=== PATIENT | male | born 1930 | race Caucasian/White ===

== ENCOUNTER 2016-09-20 05:39 | Inpatient (IN) | payer MEDICARE, OTHER ==
--- NOTE | 2016-09-18 08:51 | PCM.HPANE ---
Patient Data Surgeon Admitting Provider: Attending Provider:Parveen Johnson MD Primary Care Physician:Hudson Coates MD Other Provider:YangocPreciousPrinter Anesthesia Reason for Visit Incisional Hernia Ht/WT & BMI Height (Feet): 5 Height (Inches): 11 Weight (Kilograms): 93.2 Body Mass Index 28.00 Allergies Coded Allergies: codeine (Verified Allergy, Severe, Hallucinations, 06/30/16) polyethylene glycol 3350 (Verified Allergy, Unknown, vomiting, gerd, ) Past Anesthesia History Anesthesia History: Denies:: Abnormal Airway, Anesthesia Reactions, Difficult Intubation, Fam Anesthesia Reaction, Fam Malignant Hypertherm, Malignant Hyperthermia Diabetes History Hx Diabetes?: No MRSA MRSA: No Medications Hypertension Medication: Yes Home Meds Incl Beta Gabby: Yes Reported Medications Propranolol HCl 40 Mg Qrvnyo00 Mg PO DAILY PRN tachycardia Ref 0 09/16/16 Metoprolol Succinate ER 25 Mg Tab.er.24h25 Mg PO BID Ref 0 09/16/16 Lisinopril 10 Mg Tablet5 Mg PO DAILY 30 Days Ref 0 09/16/16 [Iron] No Conflict Check25 Mg PO BID 11/03/15 Eszopiclone (Lunesta)3 Mg Tablet3 Mg PO HS PRN sleep 10/08/14 Amitriptyline 25 Mg Tab25 Mg PO HS Ref 0 10/08/14 Prazosin 5 Mg Capsule5 Mg PO HS 30 Days 10/08/14 Furosemide 20 Mg Tab20 Mg PO DAILY 30 Days Ref 0 10/08/14 Discontinued Reported Medications Propranolol HCl 40 Mg [id number] Mg PO DAILY Ref 0 06/30/16 Metoprolol Succinate ER 25 Mg Tab.er.24h25 Mg PO DAILY Ref 0 06/30/16 Lisinopril 20 Mg Baerwm60 Mg PO DAILY 30 Days Ref 0 09/17/15 History History of ENT Problems?: Yes HEENT History: Positive for:: Hearing Problem Sinus Problem (chronic sinus drainage- uses Neti pot) Denies:: Abnormal Airway Cataracts Difficult Intubation Dysphagia Other HEENT Pertinent History: 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, 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 difficulty, does not see well Hx of Heart Problems?: Yes Cardiovascular History: Positive for:: Hypertension Irregular Heartbeat (SVT) Denies:: AICD Atrial Fibrillation Cardiac Surgery Chest Pain Congestive Heart Failure Edema Heart Murmur Pacemaker Thrombophlebitis Valvular Heart Disease Hx of Respiratory Problem?: Yes Respiratory History: Positive for:: Pneumonia Use of C-PAP Machine (NICK+) Denies:: Asthma COPD Chest Surgery Cough Dyspnea Emphysema Hemoptysis Tuberculosis Hx Neurologic Problems?: No Neurological History: Denies:: CVA Dementia Dizziness Headaches Multiple Sclerosis Parkinson's Disease Seizures TIA Hx of GI Problems?: Yes Gastrointestinal History: Positive for:: Cirrhosis Gall Bladder Disease (removed) Liver Disease (liver function normal on blood workstates has cirrhosis) Denies:: Diverticulitis Gastroesphageal Reflux Hiatal Hernia Rectal Bleeding Other GI Pertinent History: hx lap right colectomy 2016 Hx of Problems?: Yes Genitourinary History: Denies:: HX of Hemodialysis (CKD stage III) Kidney Stones Urinary Tract Infection HX of Peritoneal Dialysis: No Male Hx: Denies:: Prostate Problems Scrotal Mass Testicular Surgery Skin History: Denies:: History Skin Disorders? Pressure Ulcers Hx Musculoskeletal Problems?: Yes Musculoskeletal History: Positive for:: Back Injury (C6-7 lami hx ) Musculoskeletal Trauma Osteoarthritis Denies:: Fibromyalgia Joint Replacement Myasthenia Gravis Systemic Lupus Hx of Psycho/Social Problems?: No Psycho Social History: Denies:: Anxiety Bipolar Disorder Hx Depression Suicide Attempt Hx Surgeries?: Yes (neck c6-7,gallbladder,appy,colon resection,cataracts) Hx Any Other Health Problems?: Yes Other History: Positive for:: Cancer (CECAL) Denies:: Endocrine Disease Hospitalization Thyroid Disease History Blood Transfusions: Positive for:: Accept Blood Products? Denies:: Blood Transfuse Reaction Blood Transfusions Hx Diabetes: No Hx Alcohol Use: YesAlcoholic Drinks Per Day: beer once weeklyHx Substance Use : No Smoking Status: Never Smoker Have You Smoked inLast 12 mo: No Stop/Bang S-Snoring: Do You Snore Loudly: No T-Tired: feel tired, fatigued: Yes O-Obsered: Observed not breath: No P-Blood Pressure: treated: Yes B- Body Mass Index > 35 kg/m2: No A- Age over 50: Yes N- Neck Large Circumference: No G- Gender Male: Yes NICK Total Score: 4 Risk Assessment Category Category 1A: Patient has history of documented sleep apnea, and HAS NOT received any narcotic, sedative or anesthesia administration during this stay. Category 1B: Patient has history of documented sleep apnea, and HAS received any narcotic , sedative or anesthesia administration during this stay Category 2: Patient has SUSPECTED Obstructive Sleep Apnea, and HAS received any narcotic , sedative or anesthesia administration during this stay. Category 3: Patient has SUSPECTED Obstructive Sleep Apnea and HAS NOT received narcotic, sedative or anesthesia administration during this stay. Category 4: Outpatient in Procedural Areas with known sleep apnea or who screen positive for High Risk via the STOP/BANG questionnaire. Exam Exam General Appearance: Alert, Oriented X3, Cooperative, No Acute Distress HEENT/AIRWAY: MP 2, Neck Movement (30% expected ROM), Mouth Opening (small) Lungs: Normal Air Movement Plan Impression Patient chart reviewed, patient interviewed and anesthestic plan with risks, benefits, and alternatives discussed, and informed consent obtained. NPO Status: 11/02/15 1730 ASA Physical Status: ASA2 Mod Systemic Disease Anesthetic Plan: GA Bene/Risks/Altern/Consents: Yes HP Complete Prior to Induction: Yes Andriy Banerjee MD Sep 18, 2016 08:51
[~2016-09-20] VITALS: Ht 180.3 cm; Wt 94.4 kg
[2016-09-20] VITALS (9 sets, daily range): BP systolic 109–151; BP diastolic 62–82; PULSE 48–78; RESP 11–20; O2SAT 90–100
[~2016-09-20 05:39] MED LIST: AMT25T PO; ESZO3TAB11 PO; FUR20 PO; IRON PO; LISI10TA PO; Lactated Ringer's 1,000 ML IV ONE; METO25TA99 PO; PRAZ5CAP3 PO; PROP40TA5 PO
[2016-09-20] MEDS ORDERED: Glycopyrrolate 0.2 mg/mL 5 mL Inj ONE (05:40)
[2016-09-20] MEDS ORDERED: Neostigmine 1 mg/mL 5 mL Inj ONE (05:40)
[2016-09-20] MEDS ORDERED: Propofol 10,000 mCg/mL 20 mL Inj ONE (05:40)
[2016-09-20] MEDS ORDERED: Ondansetron 2 mg/mL 2 mL Inj ONE (05:40)
[2016-09-20] MEDS ORDERED: Rocuronium 10 mg/mL 5 mL Inj ONE (05:40)
[2016-09-20] MEDS ORDERED: fentaNYL-PF 50 mCg/mL 2 mL Inj ONE (05:40)
[2016-09-20] MEDS ORDERED: Heparin 5,000 Unit/mL Inj SUBQ ONE (06:00)
[2016-09-20] MEDS: CeFAZolin 2 Gm/50 mL D5W IV Premix IV ONE ×2 (07:09→07:43)
[2016-09-20] MEDS ORDERED: Lactated Ringer's 1,000 ML IV SCH (08:08)
[2016-09-20] MEDS ORDERED: Lactated Ringer's 500 ML IV PRN (08:08)
[2016-09-20] MEDS ORDERED: Labetalol 5 mg/mL 4 mL Inj IV PRN (08:10)
[2016-09-20] MEDS ORDERED: EPHEDrine Sulfate 50 mg/mL Inj IM PRN (08:10)
[2016-09-20] MEDS ORDERED: Dexamethasone 4 mg/mL Inj IVPUSH PRN (08:10)
[2016-09-20] MEDS ORDERED: hydrALAZINE 20 mg/mL Inj IVPUSH PRN (08:10)
[2016-09-20] MEDS ORDERED: EPHEDrine Sulfate 50 mg/mL Inj IVPUSH PRN (08:10)
[2016-09-20] MEDS ORDERED: Atropine 0.4 mg/mL Inj IVPUSH PRN (08:10)
[2016-09-20] MEDS ORDERED: Phenylephrine 10,000 mCg/mL Inj IVPUSH PRN (08:10)
[2016-09-20] MEDS ORDERED: Ondansetron 2 mg/mL 2 mL Inj IVPUSH PRN (08:10)
[2016-09-20] MEDS ORDERED: hydrOXYzine Inj 25 MG/1 mL SDV IM PRN (08:10)
[2016-09-20] MEDS ORDERED: Bupivacaine-MPF 0.5% 30 mL Inj INFILTRATE ONE (08:19)
[2016-09-20] MEDS: Dextrose 5% Lactated Ringer's 1,000 ML IV SCH ×2 (09:49→19:36)
[2016-09-20] MEDS: Acetaminophen IV 1,000 MG in IV Premix 1 EACH IV SCH ×3 (09:50→22:16)
[2016-09-20 10:14] LABS: APPEARANCE,URINE HAZY (CLEAR,HAZY); COLOR,URINE STRAW (YELLOW); OCCULT BLOOD,URINE NEGATIVE (NEGATIVE); PH,URINE 6.5 (5.0-8.0); UROBILINOGEN,URINE NORMAL (NORMAL)
[2016-09-20] MEDS: fentaNYL-PF 50 mCg/mL 2 mL Inj IVPUSH PRN ×3 (10:30→10:45)
--- NOTE | 2016-09-20 10:43 | PCM.ANEP1 ---
Post Anesthesia Phase 1 PACU Phase 1 Assessment Vital Signs Vital Signs Date Time Temp Pulse Resp B/P Pulse Ox O2 Delivery O2 Flow Rate FiO2 09/20/16 10:15 48 11 116/62 96 Nasal Cannula 2 09/20/16 10:05 49 12 126/64 97 Nasal Cannula 2 09/20/16 09:54 36.8 58 14 123/69 90 Room Air 09/20/16 05:59 CPAP/BIPAP 09/20/16 05:57 35.7 69 17 109/64 94 Room Air Anesthetic Administered: GA Level of Alertness: Awake, talking HUTTON's with Equal Strength: Yes Pain: No Nausea or Vomiting: No Oxygen Delivery: Room Air Lungs: Normal Air Movement Andriy Banerjee MD Sep 20, 2016 10:43
[2016-09-20] MEDS: HYDROmorphone 1 mg/mL Inj IVPUSH PRN ×2 (10:55→11:00)
--- NOTE | 2016-09-20 15:13 | NUR ---
Arrival to 1001 Pt to room 1001 at 1140 from PACU, report taken from Eriberto. Pt is alert and oriented; rating pain 5/10 in his abdominal region, stating it "comes in waves"; denies nausea; abdomen has 10 lap sites with bandaids and s/s that are CDI, is round with hypoactive bowel tones; gao catheter is patent and draining to gravity; PIV converted to SL per orders; SCD's on BLE; on 2L O2 via NC and placed on CPOx d/t NICK and CPAP use. Pt is familiar with abdominal surgery as he recently had a colectomy at this facility. is at bedside.
[2016-09-20] MEDS ORDERED: 0.9% Sodium Chloride 250 ML ONE (15:32)
--- NOTE | 2016-09-20 20:03 | OP ---
[address] [address] OPERATIVE REPORT PATIENT: CARMEN COPELAND : 1930 MR#: [id number] ADMIT: 09/20/2016 JOB ID: [id number] DATE OF SURGERY: 09/20/2016 PREOPERATIVE DIAGNOSIS(ES): Incarcerated incisional hernia. POSTOPERATIVE DIAGNOSIS(ES): Incarcerated incisional hernia. PROCEDURE: Laparoscopic repair, incarcerated incisional hernia with mesh. SURGEON: Parveen Johnson MD. FREELANCE PROGRAMMER/APP DEVELOPER: Wyatt Elizondo PA-C. INDICATIONS: An 85-year-old man who had a laparoscopic right colectomy for right colon cancer in August 2015. He developed a postoperative ileus resulting in a marked abdominal wall distention and developed an incisional hernia at the specimen extraction incision which is in a periumbilical location. He has an SVT and was seen preoperatively by Dr. Cornelio Callejas and received cardiology clearance. FINDINGS: He had an incarcerated hernia. It contained actually only a small amount of incarcerated omentum. There was no incarcerated intestine. The defect was 10 cm. It was repaired with a 20 x 15 cm Opti-Fix mesh. DESCRIPTION OF PROCEDURE: At the beginning and end of the operation, the SCOAP checklist was completed. A Tyson catheter was inserted. He received preoperative antibiotics and subcutaneous heparin. Using ChloraPrep, he was prepped and draped in the usual fashion. All trocar sites were infiltrated with 0.5% plain bupivacaine. A small left subcostal incision was made. A Veress needle was inserted atraumatically, the abdomen insufflated with CO2 and an optical port was placed through the same incision. All additional trocars were placed under direct visualization. On the left side, two additional 5 mm trocars were placed. The incarcerated omentum was mobilized out of the hernia sac. Then under direct visualization, three additional right-sided ports were placed with the mid abdominal port being a 12 mm port. The hernia defect was measured and then a 20 x 15 cm Opti-Fix mesh was selected. 0-Vicryl sutures were then placed at the 12 o'clock, 3 o'clock, 6 o'clock and 9 o'clock positions. They were color-coded so that there was orientation between the lateral and the superior and inferior sutures. The mesh was then rolled up tightly and through the large right lateral port it was positioned into the abdominal cavity. It was unfurled and the approximate locations of the mesh were then marked, but then it was adjusted by positioning it intra-abdominally. I then made very small incisions at the 12 o'clock position and grasped the 2-0 Vicryl sutures and brought full-thickness through the abdominal wall. I did a similar move at the 6 o'clock position ensuring than that the mesh was taut without any laxity. Following that, I measured markings for the 3 o'clock and 9 o'clock sutures and they similarly were brought through the abdominal wall. During this part of the procedure, the intra-abdominal pressure was markedly reduced down to the 7-8 range. When I placed the 3 o'clock suture, bleeding ensued from the abdominal wall and it was controlled with an additional mattress suture of 3-0 Vicryl placed with a suture grasper. Bleeding then stopped. The four sutures were then securely tied and then the mesh was tacked circumferentially with absorbable tacks. Additional tacks were placed in the mid portion of the mesh, also circumferentially. I reinspected the left lateral abdominal wall. There was no active bleeding. The 12 mm port was then removed and at that site the trocar site was closed with mattress sutures of 0-Vicryl. For one last time I inspected the left lateral abdominal wall where it had been bleeding and there was no active bleeding. All of the remaining 5 mm trocars were removed without evidence of bleeding. Skin incisions were closed with subcuticular 4-0 Vicryl. Steri-Strips and Band-Aids were applied. The final sponge, needle and instrument counts were announced as correct. Estimated blood loss 20 cc. No apparent complications. The patient was returned to recovery room in stable condition. Critical laparoscopic assistance provided by ROSMERY Lentz
[2016-09-20] MEDS: MeTOProlol XL 25 mg ER24 Tablet PO SCH (20:48)
[2016-09-20] MEDS ORDERED: HYDROmorphone 0.5 mg/0.5 mL iSecure Syringe IVPUSH PRN (21:25)
[2016-09-21] VITALS (8 sets, daily range): BP systolic 79–120; BP diastolic 51–75; PULSE 69–106; RESP 16–18; O2SAT 93–98
[2016-09-21] MEDS: Ondansetron 2 mg/mL 2 mL Inj IVPUSH PRN ×2 (02:34→22:28)
[2016-09-21] MEDS: Dextrose 5% Lactated Ringer's 1,000 ML IV SCH ×3 (04:16→19:40)
[2016-09-21] MEDS: Acetaminophen IV 1,000 MG in IV Premix 1 EACH IV SCH ×3 (04:16→19:04)
[2016-09-21 04:55] LABS: BASOPHILS % (AUTO) 0.1 % (0-3); EOSINOPHILS % (AUTO) 0.5 % (0-5); MONOCYTES % (AUTO) 11.6 % (4-12); Mean Corpuscular Hemoglobin 32.3 pg (27.0-35.0); Mean Corpuscular Volume 99.2 fL (81-100); NEUTROPHILS % (AUTO) 77.5 % (40-74); Platelet Count 261 bil/L (150-400)
[2016-09-21 05:16] LABS: Magnesium 2.2 mg/dL (1.6-2.6)
--- NOTE | 2016-09-21 06:00 | NUR ---
Bowel activity Pt has hyperactive bowel tones and complains of gassy pains; Simethicone given x 2. Dangled at side of bed, pain prevented pt from being able to get up. Pain managed with scheduled IV Tylenol and prn oxycodone with adequate relief while resting in bed. Hourly rounding ongoing.
--- NOTE | 2016-09-21 06:54 | PCM.ANEP2 ---
Post Anesthesia Evaluation ASA/CMS Post Anesthesia VS in Patient's Normal Range?: Yes Resp Stable; Airway Patent?: Yes CV Function & Hydration Stable: Yes Mental Status Recovered?: Yes Pain control Satisfactory?: Yes N/V Control Satisfactory?: Yes Andriy Banerjee MD Sep 21, 2016 06:53
[2016-09-21] MEDS: MeTOProlol XL 25 mg ER24 Tablet PO SCH ×2 (08:30→22:28)
[2016-09-21] MEDS ORDERED: HYDROmorphone PCA 0.2 mg/mL 30 mL Inj IV PRN (08:40)
[2016-09-21] MEDS ORDERED: Magnesium Hydroxide 10 mL Oral Concentration PO PRN (08:40)
[2016-09-21] MEDS: MetoCLOpramide 5 mg/mL 2 mL Inj IVPUSH PRN (08:43)
--- NOTE | 2016-09-21 09:32 | PROG NOTE ---
[address] [address] PROGRESS NOTE PATIENT: CARMEN COPELAND : 1930 MR#: [id number] ADMIT: 09/20/2016 JOB ID: [id number] DATE: 09/21/2016 SUBJECTIVE: Postoperative day one following laparoscopic repair of an incarcerated incisional hernia. He is still having pain as expected although his current pain management is not effective. He has also developed nausea. He has not had flatus or bowel movements, but feels his intestines churning and thinks he is going to pass gas. He has been up out of bed. He is currently sitting in a chair. PHYSICAL EXAMINATION: BMI 28. Temperature 36.7, brachial blood pressure is 80/53. Pulse 106, respiratory rate 16, O2 sat on 2 L is 93%. Abdomen is moderately distended. No significant ecchymosis. LABORATORY RESULTS: White blood cell count 10.3, hematocrit 37.5, platelet count 261,000. Electrolytes are normal. Creatinine is 1.22. Glucose is 116. Magnesium is 2.2. IMPRESSION: 1. Hypotension. For unknown reasons, his IV was stopped in the middle of the night. There is no order to support that. 2. Nausea. He had an ileus a year ago with his right laparoscopic colectomy which did lead to the formation of a hernia and perhaps he is starting to develop that. 3. Pain control. Currently inadequate. PLAN: 1. Continue IVs. 2. Continue activity. 3. Milk of Magnesia p.r.n. 4. Recheck labs tomorrow. 5. Dilaudid BENCH LATHE OPERATOR. 6. Ondansetron and metoclopramide already ordered.
[2016-09-21] MEDS: Pantoprazole 4 mg/mL 10 mL Inj IVPUSH SCH ×2 (11:18→22:28)
--- NOTE | 2016-09-21 11:28 | NUR ---
Social Work Initial Assessment: SW spoke to patient at bedside to discuss discharge plan. Patient verified name, address, and contact information. Patient is a 85 year old male admitted under [facility] for incisional hernia. Patient states residing in [facility] [place] with Janna, . Patient states payer as Medicare and [employer]. Patient has no care home disability nor VA benefits. Patient has no previous HHC, SNF, or DME history. Patient states having AD on file at this time. Patient states pharmacy of choice as [facility] or [facility]. Patient states home is wheelchair assessable with wide doors. Patient states being independent with needs and to provide support and care. Patient states having no identified discharge needs at this time. SW to follow. PLAN: Home with via POV, pending clinical course. SW will continue to follow. No anticipated discharge needs at this time. Davon MULLIGAN Addendum: 09/21/16 at 1132 by GAYLE CORDOVA Amended: Links added.
--- NOTE | 2016-09-21 13:41 | NUR ---
Distended abd, low bp Patient with pressure , abd cramping at times, abdomen is distended and slightly firm to touch. Pt with some nausea in am. Pt up to chair became dizzy Bp noted to be very low 80's/40-50's, pt assisted back to bed and feet elevated manual Bp taken now 96/62 when checked. Patients bp Meds withheld this am related to low bp. is in surgery and will be notified of this.
[2016-09-21] MEDS ORDERED: diphenhydrAMINE 25 mg Capsule PO PRN (19:00)
[2016-09-22] MEDS: Acetaminophen IV 1,000 MG in IV Premix 1 EACH IV SCH ×2 (01:05→06:27)
[2016-09-22] MEDS: MetoCLOpramide 5 mg/mL 2 mL Inj IVPUSH PRN ×2 (03:25→10:24)
[2016-09-22 05:29] LABS: BASOPHILS % (AUTO) 0.1 % (0-3); EOSINOPHILS % (AUTO) 0.4 % (0-5); MONOCYTES % (AUTO) 13.1 % (4-12); Mean Corpuscular Hemoglobin 32.5 pg (27.0-35.0); Mean Corpuscular Volume 100.2 fL (81-100); NEUTROPHILS % (AUTO) 81.5 % (40-74); Platelet Count 305 bil/L (150-400)
[2016-09-22 06:00] LABS: Magnesium 2.2 mg/dL (1.6-2.6)
[2016-09-22 06:28] VITALS: BP 109/72; PULSE 92; RESP 17; O2SAT 98
[2016-09-22] MEDS: Dextrose 5% Lactated Ringer's 1,000 ML IV SCH ×2 (06:29→17:59)
--- NOTE | 2016-09-22 06:39 | NUR ---
GI Abdomen continues to be very firm and distended; hyperactive, high pitched, metallic-sounding bowel tones. Pt nauseated and vomited large amount of green liquid during night. Denies flatus. Pain is relatively unchanged, IV Tylenol providing adequate relief. Hourly rounding ongoing.
[2016-09-22 08:15] VITALS: BP 153/89; PULSE 87; RESP 18; O2SAT 99
[2016-09-22] MEDS: Pantoprazole 4 mg/mL 10 mL Inj IVPUSH SCH ×2 (08:33→19:59)
[2016-09-22] MEDS: MeTOProlol XL 25 mg ER24 Tablet PO SCH ×2 (08:41→19:56)
--- NOTE | 2016-09-22 10:31 | DRSVH ---
PROCEDURE: X-RAY ABDOMEN, ONE VIEW ([id number]) INDICATIONS: abdominal distension after incisional hernia repa TECHNIQUE: One view of the abdomen acquired. COMPARISON: [facility], CR, XR ABD AP 1VW, 11/10/2015, 21:26. FINDINGS: Surgical changes and devices: Right upper quadrant presumed cholecystectomy clips. Bowel: Bowel gas pattern is abnormal, with gas distention of small bowel loops to the degree that sm all bowel obstruction appears present. Soft tissues: No suspicious abdominal calcifications. Visualized solid organ contours appear normal in size. Bones: No suspicious bony lesions. IMPRESSION: Prior cholecystectomy, small bowel obstruction pattern, no free air found. Dictated by: Andrey Swain M.D. on 09/22/2016 at 10:29 Approved by: Andrey Swain M.D. on 09/22/2016 at 10:30
--- NOTE | 2016-09-22 11:00 | PROG NOTE ---
[address] [address] PROGRESS NOTE PATIENT: CARMEN COPELAND : 1930 MR#: [id number] ADMIT: 09/20/2016 JOB ID: [id number] DATE: 09/22/2016 SUBJECTIVE: The patient is seen in followup. He vomited during the night. He has not passed gas or had a bowel movement but he feels that he is going to. PHYSICAL EXAMINATION: Temperature is 36.5, brachial blood pressure 153/89, pulse 87, respiratory rate 18, O2 sat on 2 L 99%. Abdomen very distended. Band-Aids have caused blistering, and all Band-Aids and Steri-Strips will be removed. Urine output 650 cc in the first 8 hours of today. LABORATORY RESULTS: White blood cell count is 13.6, hematocrit is 40, platelet count 305,000. Electrolytes are normal. Creatinine has risen minimally to 1.26 from 1.22. Glucose 164. IMPRESSION: Ileus. PLAN: Abdominal x-rays. May need an NG tube. Repeat labs tomorrow. Encourage ambulation. Consider enema.
[2016-09-22] MEDS ORDERED: Sodium Biphos-Phos 133 mL Enema RECTAL ONE (12:45)
--- NOTE | 2016-09-22 14:31 | NUR ---
Case Management- Patient given TOLBERT. Explained and signed. Nicole CUELLAR/RN
--- NOTE | 2016-09-22 16:06 | NUR ---
Abdominal distention Pt reports distention of his abdomen today. Had one episode of emesis this a.m. of approximately 25 mL. Emesis was green bile. Bandaids that were covering the lap sites had stretched and caused a few skin tears and one small blister on his medial abdomen. Bowel tones were present in all 4 quadrants, but pt reported no flatus. ordered a Fleet enema. Enema administered and pt had a loose brown BM just before 1600 hrs. Pt feeling tired now and he is resting in bed. Care continues.
[2016-09-22 17:43] VITALS: PULSE 108; O2SAT 97
[2016-09-22 18:57] VITALS: BP 148/89; PULSE 115; RESP 17; O2SAT 97
[2016-09-22 20:01] VITALS: BP 133/82; PULSE 118; RESP 17; O2SAT 95
[2016-09-23] MEDS: Dextrose 5% Lactated Ringer's 1,000 ML IV SCH ×2 (04:21→16:54)
[2016-09-23 04:34] VITALS: BP 101/66; PULSE 116; RESP 17; O2SAT 95
--- NOTE | 2016-09-23 05:07 | NUR ---
Smear BM Pt. had a smear BM this shift. Pt. still was distended. Pt. requested milk of mag which was administered. Will continue to monitor.
[2016-09-23 05:29] LABS: BASOPHILS % (AUTO) 0.1 % (0-3); EOSINOPHILS % (AUTO) 1.4 % (0-5); MONOCYTES % (AUTO) 16.1 % (4-12); Mean Corpuscular Hemoglobin 32.5 pg (27.0-35.0); Mean Corpuscular Volume 99.5 fL (81-100); NEUTROPHILS % (AUTO) 75.9 % (40-74); Platelet Count 295 bil/L (150-400)
[2016-09-23 06:01] LABS: Magnesium 1.8 mg/dL (1.6-2.6)
[2016-09-23] MEDS ORDERED: Sodium Biphos-Phos 133 mL Enema RECTAL ONE (07:50)
[2016-09-23] MEDS: MeTOProlol XL 25 mg ER24 Tablet PO SCH ×2 (08:30→22:45)
[2016-09-23 08:32] VITALS: BP 129/81; PULSE 116; RESP 20; O2SAT 96
--- NOTE | 2016-09-23 08:36 | PROG NOTE ---
[address] [address] PROGRESS NOTE PATIENT: CARMEN COPELAND : 1930 MR#: [id number] ADMIT: 09/20/2016 JOB ID: [id number] DATE: 09/23/2016 SUBJECTIVE: Postoperative day three following laparoscopic incisional hernia repair. He had a large bowel movement yesterday, but he has not had anything out since then. He had a rough night. He did try some Milk of Magnesia, which cause cramping and pain. He is just not feeling well. PHYSICAL EXAMINATION: Temperature 36.4, brachial blood pressure 101/66, pulse 116, respiratory rate 17, O2 sat 2 L 95%. Abdomen remains distended. Maybe a little less than two days ago, but not significantly. Urine output 150 cc the first eight hours of today. AXR yesterday air in SB no free air LABORATORY RESULTS: White count has dropped slightly from 13,600 to 11,000. Hematocrit is 36. Platelet count 295,000. Electrolytes are normal. Creatinine has risen from 1.26 to 1.8. Glucose is 168. Bilirubin 0.4. AST 17, ALT 11. IMPRESSION: Ileus. PLAN: Repeat enema today. Try to ambulate. Repeat labs in the morning. Will check on him later today. Will also increase his IV rate. MTDD
--- NOTE | 2016-09-23 10:18 | NUR ---
NUTRITION ASSESSMENT: ASSESS: Pt is an 85yo M admitted for incisional hernia. Postoperative day three following laparoscopic incisional hernia repair. He has been experiencing increased abdomen distention and some n/v. Pt had large BM 09/22 but continues to have abdomen cramping. PO has been variable due to GI symptoms from refused-75%. PMHX: HTN, COPD, PNA, gallbladder disease, cecal ca LABS: Reviewed. Claim Specialist 1.81, Glu 168, Alb 3.2 MEDS:Reviewed. Milk of Mag, fleet enema, tums GI: BMx1 09/23 SKIN: Alejandro 20 CURRENT WTS: 93.4kg, BMI 28.7kg/m2, admit wt 91.5kg DIET: Heart Healthy, PO refused-75% EST. NEEDS: Kcals: 2335-2800kcal/day (25-30kcal/kg) Pro: 90-110g/day (1.0-1.2g/kg) NUTRITION DIAGNOSIS: 1.) Inadequate oral intake related to altered GI function as evidence by pt refusing PO, reported abdomen distended/cramping and n/v NUTRITION INTERVENTION: 1.) Will continue to monitor GI status and PO intake MONITOR / EVAL: PO intake, GI, wt, POC, nutrition status. Will continue to monitor per moderate nutrition risk guidelines
--- NOTE | 2016-09-23 11:30 | NUR ---
Abdominal Distention/Enema Pt c/o abdominal distention, firmness, and unable to pass gas. Fleets enema given to patient. Post administration one hour, patient has 1 xsmall episode of watery stool with minimal relief in abdomen. RLQ distention prominent. Paged with nursing concerns and family wishes to speak with him. New order for NGT. Informed patient of plan of care and patient wishes to decline NGT at this time and wait to see if enema has further effect. Cancelled NGT order. Reported all physical symptoms to .
[2016-09-23] MEDS ORDERED: Lactated Ringer's 500 ML IV ONE (12:45)
[2016-09-23] MEDS ORDERED: Lactated Ringer's 1,000 ML IV ONE (13:09)
--- NOTE | 2016-09-23 13:20 | NUR ---
Pt up to BSC 1 person assist; Pt had 1 small watery stool. Addendum: 09/23/16 at 1320 by KRISTINA CATHERINE Amended: Links added.
[2016-09-23 14:42] VITALS: BP 137/78; PULSE 80; RESP 17; O2SAT 97
--- NOTE | 2016-09-23 16:08 | NUR ---
NG placement: Ng placed to right nares. 14F to 55cm length. Lt green drainage returned. Some bleeding to left nares after 1st insertions attempt failed.
--- NOTE | 2016-09-23 16:12 | NUR ---
NGT to LIS, Immediately drained 500ml Dark green bile contents with brown particulate. Patient indicates he feels immediate pressure relief in abdomen.
[2016-09-23 17:15] VITALS: BP 147/83; PULSE 91; RESP 17; O2SAT 93
[2016-09-23 19:30] VITALS: BP 133/75; PULSE 106; RESP 16; O2SAT 95
[2016-09-23] MEDS: Pantoprazole 40 mg ER24 Tablet PO SCH (22:45)
[2016-09-24 00:19] VITALS: BP 129/80; PULSE 118; RESP 16; O2SAT 92
[2016-09-24] MEDS ORDERED: Lactated Ringer's 500 ML IV ONE ×2 (00:45→08:35)
[2016-09-24] MEDS ORDERED: Lactated Ringer's 0 ML IV ONE (01:08)
[2016-09-24] MEDS: Dextrose 5% Lactated Ringer's 1,000 ML IV SCH ×4 (01:12→20:22)
[2016-09-24 04:29] VITALS: BP 122/84; PULSE 123; RESP 17; O2SAT 90
[2016-09-24] MEDS: Ondansetron 2 mg/mL 2 mL Inj IVPUSH PRN (04:29)
--- NOTE | 2016-09-24 04:56 | NUR ---
NG / output NG continues to freely drain dark green/brown liquid with particulates, pt reports less tight abdominal discomfort, intermittent nausea. Low urine output, Md aware; fluid bolus given and orders followed. Pt has not been out of bed this shift. HR tachy, asymptomatic. Hourly rounding ongoing.
[2016-09-24 05:35] LABS: BASOPHILS % (AUTO) 0.3 % (0-3); MONOCYTES % (AUTO) 23.5 % (4-12); NEUTROPHILS % (AUTO) 62.1 % (40-74); Platelet Count 321 bil/L (150-400)
[2016-09-24] MEDS: MeTOProlol XL 25 mg ER24 Tablet PO SCH ×2 (07:39→20:28)
[2016-09-24] MEDS: Pantoprazole 40 mg ER24 Tablet PO SCH ×2 (07:39→20:24)
[2016-09-24] MEDS ORDERED: Lactated Ringer's 1,000 ML IV ONE (08:05)
--- NOTE | 2016-09-24 09:13 | PROG NOTE ---
[address] [address] PROGRESS NOTE PATIENT: CARMEN COPELAND : 1930 MR#: [id number] ADMIT: 09/20/2016 JOB ID: [id number] DATE: 09/24/2016 SUBJECTIVE: Postoperative day four following laparoscopic placement of mesh for repair of an incisional hernia. He had a large bowel movement on postoperative day two. He had a small bowel movement this morning but yesterday, because of progressive abdominal distention and nausea and vomiting, an NG tube was placed. It did help him feel better but he still feels miserable. PHYSICAL EXAMINATION: His weight is 93.1, which is up 2 kg since admission. Temperature 36.8, brachial blood pressure 122/84, pulse 123, respiratory rate 17, O2 sat is 90 on room air. It is listed on room air but I actually think he is on nasal prongs. NG tube with bilious output. He put out a total of 1800 cc overnight. Urine output 600 cc overnight. Abdomen is less distended. Incisions are healing well. LABORATORY DATA: White blood cell count 7.8, hematocrit 35.9, platelet count 321,000. Sodium 143, potassium 3.5, creatinine 1.6 from 1.8 yesterday, magnesium is 2.0. IMPRESSION: Ileus versus small bowel obstruction. PLAN: A CT scan of the abdomen without contrast.
[2016-09-24 09:51] VITALS: BP 148/90; PULSE 106; RESP 15; O2SAT 97
--- NOTE | 2016-09-24 12:03 | DRSVH ---
PROCEDURE: CT ABDOMEN AND PELVIS WITHOUT CONTRAST ([id number]) INDICATIONS: post-op ileus TECHNIQUE: Noncontrast 5 mm thick sections acquired from the diaphragms to the symphysis. 5 mm coronal and sagi ttal reformats were then performed. For radiation dose reduction, the following was used: automated exposure control, adjustment of mA and/or kV according to patient size. COMPARISON: [facility], CT, CT ABD PELVIS WO CON, 01/18/2016, 15:54. FINDINGS: Image quality: Excellent. ABDOMEN: Lung bases: Moderate dependent bibasilar airspace opacity is present. Heart size is normal. Solid organs: Liver and spleen are normal in size. Gallbladder is surgically absent. Pancreas is n ormal in contours. No adrenal nodules. Kidneys are normal in size, without hydronephrosis or nephro lithiasis. Peritoneum and bowel: The stoma is nondistended, and the distal aspect of CT is present within the pr oximal gastric lumen. The duodenum is nondistended. There is moderate to severe distention of the rem ainder of the small bowel, extending to a right lower quadrant ileocecal anastomosis. The colon is mo derately diffusely distended. There is relative sparing of the descending and sigmoid colon. No free fluid or air. Nodes and vessels: No retroperitoneal or mesenteric adenopathy by size criteria. Aorta and inferior vena cava are normal in caliber. Miscellaneous: The previously seen bowel containing anterior paramedian abdominal wall hernia is no l onger present, and there is an 11.7 mm diameter subcutaneous fluid collection in this location. PELVIS: Genitourinary: A Tyson catheter is present within the urinary bladder lumen. Miscellaneous: No inguinal hernias or adenopathy. Bones: No suspicious bony lesions. No vertebral body compression fractures. IMPRESSION: 1. Diffuse small and large bowel distention as described above, consistent with the given history of ileus. No discrete transition point is present to indicate small bowel obstruction. 2. Postsurgical fluid collection within the herniorrhaphy bed. 3. Bibasilar atelectasis versus pneumonia. Dictated by: Jori Castillo M.D. on 09/24/2016 at 11:56 Approved by: Jori Castillo M.D. on 09/24/2016 at 12:01
[2016-09-24 14:21] VITALS: BP 152/83; PULSE 99; RESP 16; O2SAT 90
--- NOTE | 2016-09-24 16:31 | NUR ---
Social Work Continued Discharge Planning: SW met with patient at bedside to discuss discharge plan. Patient states plan as home pending NG tube management. Patient states he hopes to discharge home with support from and family. SW to follow up with patient's clinical course to ensure home nutrition needs upon discharge. SW to follow. PLAN: Home with pending clinical course Davon Ng
--- NOTE | 2016-09-24 17:40 | NUR ---
Urine output Pt had low Urine output when this RN arrived today, Pt has gotten 3350 ML in fluid IV today and has had 290 ml out of gao today in 10 hours, MD aware. Pt does not have blockage but does have ileus and pt does not have hernia but fluid making his abdomen bulge.
[2016-09-24 19:55] VITALS: BP 155/93; PULSE 121; RESP 16; O2SAT 97
--- NOTE | 2016-09-24 20:32 | NUR ---
Inpatient status effective today. [facility] signed
[2016-09-25] MEDS: Dextrose 5% Lactated Ringer's 1,000 ML IV SCH (02:26)
--- NOTE | 2016-09-25 03:37 | NUR ---
Pain/ Liquid Stool Pt. reported moderate pain. 2 Oxycodone tablets have been effective for his pain so far. Pt. had a moderate amount of liquid stool. Will continue to monitor.
[2016-09-25 05:43] VITALS: BP 147/80; PULSE 123; RESP 16; O2SAT 92
[2016-09-25 06:08] LABS: BASOPHILS % (AUTO) 0.4 % (0-3); EOSINOPHILS % (AUTO) 2.4 % (0-5); MONOCYTES % (AUTO) 26.1 % (4-12); Mean Corpuscular Hemoglobin 32.6 pg (27.0-35.0); Mean Corpuscular Volume 101.4 fL (81-100); NEUTROPHILS % (AUTO) 58.4 % (40-74); Platelet Count 312 bil/L (150-400)
--- NOTE | 2016-09-25 07:59 | PCM.PNSURG ---
Subjective Visit Information: Reason for Visit Incisional Hernia Surgery/Surgery Date HERNIA REPAIR 09/20/16 Post-Op Day # Date of Admission: Sep 20, 2016 at 11:27 Hospital Day # Subjective: had a small liquid BM last night, denies flatus, still distended but thinks it' s softer Objective Objective Awake in bed Abd: distended, protruding lower abd wall due to seroma, incisions OK Vital Sign- Last 8 Hours Date Time Temp Pulse Resp B/P Pulse Ox O2 Delivery O2 Flow Rate FiO2 09/25/16 05:43 36.8 123 16 147/80 92 Nasal Cannula 2.00 09/25/16 00:30 Supplement Oxygen CPAP/BIPAP Intake and Output- Last 8 Hour 09/25/16 Cumulative From/Thru 07:00 09/16/16 13:44 - 09/25/16 05:41 Intake Total 0 ml 32104 ml Output Total 1050 ml 9855 ml Balance -1050 ml 2865 ml Intake Oral 0 ml 3490 ml IV Total 9230 ml Output Urine Total 200 ml 5360 ml Stool Total 200 ml 200 ml Gastric Drainage Total 650 ml 3950 ml Emesis 325 ml Estimated Blood Loss 20 ml # Bowel Movements 6 Result Diagram: 09/25/16 0513 09/25/16 0513 Assessment & Plan Impression Postop ileus s/p incisional hernia repair with mesh Problems: Plan Continue NGT and IVF ambulate Consider removing gao tomorrow if UOP is better VTE Prophylaxis: Sub-Q Heparin (Unfractionated) Francisco Virk MD Sep 25, 2016 07:59
[2016-09-25] MEDS: D5 0.45% NaCl + KCl 20 mEq/L 1,000 ML IV SCH ×3 (09:04→21:20)
[2016-09-25] MEDS: Pantoprazole 40 mg ER24 Tablet PO SCH ×2 (09:04→20:59)
[2016-09-25] MEDS: MeTOProlol XL 25 mg ER24 Tablet PO SCH ×2 (09:05→21:00)
[2016-09-25] MEDS: Heparin 5,000 Unit/mL Inj SUBQ SCH ×2 (09:24→16:46)
[2016-09-25 13:07] VITALS: BP 152/95; PULSE 121; RESP 18; O2SAT 93
--- NOTE | 2016-09-25 13:58 | NUR ---
GI NGT intermittent suction turned off for short time, approx 45 mins for oral medications to be administered. Just before turning suction back on, patient stated he was starting to feel nauseous. C/o abd pain 2-11/05, declined any pain medication. Small BM x1 during shift. No flatus. Continue to monitor.
[2016-09-25] MEDS: MetoCLOpramide 5 mg/mL 2 mL Inj IVPUSH PRN (14:59)
--- NOTE | 2016-09-25 17:34 | NUR ---
MOOD Patient verbalized frustration over recent medical issues. States has no energy, "can't even get up out of bed." Feeling hopeless. Provided active listening to patient's feelings and reassurance that he can overcome this. Encouraged patient to take everything one day at a time and that ileus' take time to recover from and we can't hurry up the situation. Encouraged patient to sit at edge of bed. Got to edge of bed with minimal assistance and had patient stand at EOB with FWW for a few minutes to provide reassurance that he still is capable of doing these things. Patient acknowledged and stated he would get up a few more times this evening. Continue to monitor.
[2016-09-25 20:30] VITALS: BP 144/87; PULSE 125; RESP 18; O2SAT 90
[2016-09-25] MEDS ORDERED: KCl 40 mEq/D5W 500 mL 40 MEQ in IV Premix 1 EACH IV ONE (23:45)
[2016-09-26] VITALS (11 sets, daily range): BP systolic 117–155; BP diastolic 62–78; PULSE 85–129; RESP 16–20; O2SAT 90–95
[2016-09-26] MEDS: D5 0.45% NaCl + KCl 20 mEq/L 1,000 ML IV SCH ×3 (00:30→17:04)
[2016-09-26] MEDS: MeTOProlol 1 mg/mL 5 mL Inj IV PRN ×5 (00:30→23:58)
[2016-09-26] MEDS: Heparin 5,000 Unit/mL Inj SUBQ SCH ×4 (01:26→23:58)
--- NOTE | 2016-09-26 06:32 | NUR ---
Tachy / BM / NG Pt has been baseline Tachy. Questionable weather or not the Metoprolol PO is getting absorbed as it seems to be ineffective. Per MD change to comparable IV Metoprolol 5mg Q6 PRN Tachycardia as well as place Pt on Tele. Pt was placed on Tele with 130-140s SVT. After Metoprolol IV given pt HR decreases to 80-90 SR but then slowly increases back to the 120-130s and SVT, A flutter etc. Per pt; "I feel like if we could get my heart rate to slow down then I would have more energy." Pt has had multiple 6+ Loose liquid BMs overnight. Inc in brief as pt generalized weakness and feel too weak to get to commode at this time. Slight redness posterior scrotum. Calmoseptine seems to help greatly. NG remains at 55cm placement. suctioning dark brown bile. Medium intermittent suction per orders. Care continues
[2016-09-26] MEDS ORDERED: Sodium Chloride LOK Flush 10 mL Syringe IVFLUSH PRN ×2 (08:05)
--- NOTE | 2016-09-26 08:07 | PCM.PNSURG ---
Subjective Visit Information: Reason for Visit Incisional Hernia Surgery/Surgery Date HERNIA REPAIR 09/20/16 Post-Op Day # Date of Admission: Sep 20, 2016 at 11:27 Hospital Day # Subjective: had 5-6 liquid BMs overnight with air, NGT still putting out significant amount , overall he feels worse becuz he feels so weak, but denies abd pain Objective Objective Arousable in bed NGT --> dark bilious fluid, 1600 cc since yesterday Abd: distended, denies tenderness with palpation, seroma area is soft Vital Sign- Last 8 Hours Date Time Temp Pulse Resp B/P Pulse Ox O2 Delivery O2 Flow Rate FiO2 09/26/16 05:34 37.1 129 20 122/70 93 Nasal Cannula 2.00 09/26/16 04:00 Supplement Oxygen 09/26/16 01:27 36.8 96 117/62 90 Nasal Cannula 2.00 09/26/16 00:17 127 09/26/16 00:12 37.5 128 20 119/70 92 Nasal Cannula 2.00 Intake and Output- Last 8 Hour 09/26/16 Cumulative From/Thru 07:00 09/16/16 13:44 - 09/26/16 06:28 Intake Total 1845 ml 13227 ml Output Total 850 ml 86538 ml Balance 995 ml 4874 ml Intake Oral 400 ml 3890 ml IV Total 1445 ml 11652 ml Output Urine Total 300 ml 6060 ml Stool Total 200 ml Gastric Drainage Total 550 ml 4900 ml Emesis 325 ml Estimated Blood Loss 20 ml # Bowel Movements 4 10 Result Diagram: 09/25/16 0513 09/26/16 0501 Assessment & Plan Impression Postop ileus s/p lap incisional hernia repair with mesh Tachycardia Hypokalemia from NGT Had CT scan 2 days ago Problems: Plan Place PICC line and start TPN Continue gao catheter to monitor UOP Await resolution of ileus ? need to re-laparoscope? infected seroma? KUB ordered for today Check labs in AM Replace K and phos VTE Prophylaxis: Sub-Q Heparin (Unfractionated) Francisco Virk MD Sep 26, 2016 08:07
[2016-09-26] MEDS ORDERED: Piperacillin-Tazo 3.375 Gm Inj 3.375 GM in Dextrose 5% Minibag Plus 50 ML IV SCH (08:30)
[2016-09-26 08:41] LABS: Magnesium 1.9 mg/dL (1.6-2.6); Phosphorus 2.1 mg/dL (2.5-4.9)
--- NOTE | 2016-09-26 08:47 | DRSVH ---
PROCEDURE: X-RAY KUB ([id number]) INDICATIONS: f/u ileus TECHNIQUE: One view of the abdomen acquired. COMPARISON: None. FINDINGS: Surgical changes and devices: NGT is present. Bowel: Multiple distended small and large bowel loops are present, as before, consistent with the giv en history of ileus. Soft tissues: No suspicious abdominal calcifications. Visualized solid organ contours appear normal in size. Bones: No suspicious bony lesions. IMPRESSION: Multiple distended bowel loops, consistent with the given history of ileus. Obstruction c ould produce a similar appearance. Dictated by: Jori Castillo M.D. on 09/26/2016 at 8:44 Approved by: Jori Castillo M.D. on 09/26/2016 at 8:45
[2016-09-26] MEDS: Pantoprazole 40 mg ER24 Tablet PO SCH ×2 (08:51→20:26)
[2016-09-26] MEDS ORDERED: 0.9% Sodium Chloride 250 ML ONE (09:00)
[2016-09-26] MEDS ORDERED: Potassium Phos (mEq) Inj 20 MEQ in Dextrose 5% 250 ML IV ONE (09:20)
--- NOTE | 2016-09-26 11:36 | PCM.CONPHA ---
Subjective Reason for Pharmacy Consult: TPN Management Assessment/Plan Assessment/Plan PARENTERAL NUTRITION ORDERS 1 26-Sep-16 Standard Hang Time: 2100 Substrates Total kcal: 912 AMINO ACIDS 50 g DEXTROSE 180 g Total Volume (mL): 1500 LIPIDS 10 g Sterile Water for Injection QS mL To Infuse Over (hrs): 24 Total Volume 1500 mL At at a rate of (mL/hr): 63 Additives Sodium Chloride 30 mEq "typical" daily requirements Sodium Acetate 20 mEq Sodium 50-120mEq Potassium Chloride 40 mEq Potassium 60-120mEq Potassium Phosphate 20 mEq Phosphate 20-40mEq Calcium Gluconate 9 mEq Magnesium 8-32mEq Magnesium Sulfate 16 mEq Calcium 9-22mEq Acetate* 80-120mEq Chloride* 80-120mEq Regular Insulin units *Depending on acid-base status Famotidine mg Multivitamins 1 std dose Insulin Regimen Trace Elements 1 std dose none Thiamine 100 mg Regular Low Intensity Subcut Folic Acid 1 mg Regular Medium Intensity Subcut Ascorbic Acid mg Regular High Intensity Subcut Regular Insulin Infusion Other: Special Instructions: To be infused via central line only. For delay or inturruption of TPN contact the pharmacist for alternative replacement solution. Signature Date[facility] [facility] Sep 26, 2016 11:36
--- NOTE | 2016-09-26 12:45 | NUR ---
OFF FLOOR Patient transported off floor in hospital bed with O2 to PICC suite for PICC line placement.
--- NOTE | 2016-09-26 13:57 | DRSVH ---
PROCEDURE: X-RAY PICC LINE PLACEMENT BY NURSE ([id number]) INDICATIONS: need for total parental nutrition COMPARISON: [facility], CR, XR CHEST 2VW, 01/18/2016, 11:19. FINDINGS: PICC was placed by the intravenous therapy team from the right side. Fluoroscopic spot fi lm demonstrates tip of PICC in the lower SVC. IMPRESSION: Tip of PICC lies within the lower SVC. Dictated by: Jori Castillo M.D. on 09/26/2016 at 13:55 Approved by: Jori Castillo M.D. on 09/26/2016 at 13:56
--- NOTE | 2016-09-26 14:56 | NUR ---
Social Work: Continued Discharge Planning Data & Assessment: Patient is a 85 y/o male he admitted due to incisional hernia. Patient is not medically ready for discharge. Patient NG Tube still putting out a significant amount. Patient's physician ordered a KUB and labs in the a.m. SW will provide patient with a list of providers for Enteral nutrition. SW will continue to follow. Plan: SW will provide patient with a list of Enteral nutrition providers and follow-up for patient's choice. Patient will discharge home with in POV. SW will continue to follow. Toya Baker LMSW, ACM
--- NOTE | 2016-09-26 15:46 | NUR ---
GI Patient states his abdomen feels better this morning, still distended but less than yesterday. NGT is on low intermittent suction and continues to have dark brown output. Denies nausea. Has had 5 loose/liquid BM's today already. Patient is feeling weak, but able to help turn in bed to assist with ashley care. PICC line inserted today in RUE for initiation of TPN.
--- NOTE | 2016-09-26 18:34 | NUR ---
HR Advised MD of HR in 120-130's. Administered IV metoprolol per orders, which helps brings HR down to 80's for a few hours. Vital signs are otherwise stable at this time. Continues to be on telemetry.
[2016-09-26] MEDS ORDERED: KCl 40 mEq/D5W 500 mL 40 MEQ in IV Premix 1 EACH IV ONE (19:20)
[2016-09-26] MEDS: TPN Per Pharmacist XX SCH (20:28)
[2016-09-26] MEDS ORDERED: KCl 20 mEq/250 mL D5W (Peripheral Line) IV ONE ×2 (23:30)
[2016-09-27] VITALS (9 sets, daily range): BP systolic 107–154; BP diastolic 47–93; PULSE 72–128; RESP 16–24; O2SAT 93–95
--- NOTE | 2016-09-27 02:58 | NUR ---
MD Orders Per MD earlier in evening have EKG performed when Pts rhythm return Tacky >100. Also record HR more often so that rate changes are noted in VS of chart. Care continues
[2016-09-27 04:19] LABS: Mean Corpuscular Hemoglobin 31.8 pg (27.0-35.0); Mean Corpuscular Volume 101.5 fL (81-100); Platelet Count 266 bil/L (150-400)
[2016-09-27 05:01] LABS: Magnesium 2.1 mg/dL (1.6-2.6); Phosphorus 1.6 mg/dL (2.5-4.9)
[2016-09-27 05:02] LABS: BASOPHILS % (AUTO) 0 % (0-3); EOSINOPHILS % (AUTO) 1 % (0-5); MONOCYTES % (AUTO) 7 % (4-12); NEUTROPHILS % (AUTO) 67 % (40-74)
[2016-09-27] MEDS: D5 0.45% NaCl + KCl 20 mEq/L 1,000 ML IV SCH ×2 (06:40)
[2016-09-27] MEDS ORDERED: Potassium Phos (mEq) Inj 40 MEQ in Dextrose 5% 250 ML IV ONE (06:50)
--- NOTE | 2016-09-27 07:19 | NUR ---
HR / NG / BM HR continues to change form Tacky 120-120s to 80-90s with Metoprolol 5mg IV Q6hrs PRN. Per tele SR with PVCs when 80-90s last about 2hrs after Metoprolol Admin. Then when tacky at 120-120 AFlutter with PVCs. NG intermittent suction clear to brown gastric contents. Less nausea when clammed this evening after PO medications. Multiple BMs liquid gelatinous overnight. Calmoseptine used for skin protection. Care continues
[2016-09-27] MEDS: Pantoprazole 40 mg ER24 Tablet PO SCH ×2 (08:30→20:30)
[2016-09-27] MEDS: MeTOProlol 1 mg/mL 5 mL Inj IV PRN (08:41)
[2016-09-27] MEDS: Heparin 5,000 Unit/mL Inj SUBQ SCH ×2 (08:46→17:30)
--- NOTE | 2016-09-27 08:47 | PROG NOTE ---
[address] [address] PROGRESS NOTE PATIENT: CARMEN COPELAND : 1930 MR#: [id number] ADMIT: 09/20/2016 JOB ID: [id number] DATE: 09/27/2016 SUBJECTIVE: The patient is seen in followup. He feels poorly. He "doesn't think he will get out of here." His primary complaint is his weakness and tachycardia. He has a preoperative diagnosis of a junctional tachycardia. He has been receiving IV metoprolol. His ileus has prevented oral metoprolol. He has had multiple, 11, bowel movements overnight. He denies abdominal pain. He feels very weak. TPN started yesterday by Dr. Virk. PHYSICAL EXAMINATION: Weight 94 kg. He was around 93 on admission. Temperature 36.5, brachial blood pressure 132/70, pulse is currently 94 sinus, but he has bursts of a junctional tachycardia up to 130, respiratory rate 18, O2 sat on 2 L is 95%. HEENT: NG is in place with bilious output. Neck soft. Lungs clear. Cardiac exam regular rhythm. Abdomen: Modestly distended. Less distention compared to last week. He has no tenderness over the seroma from his old hernia sac. He has no peritoneal signs, and consistently reports no pain whatsoever with abdominal palpation. Urine output 500 cc the first 8 hours of today. NG tube 300 cc the first 8 hours of today. Ten bowel movements recorded. LABORATORY RESULTS: White count 15,300, up from 7400, hematocrit is 32.9, platelet count 266,000. Sodium 143, potassium 3.0, up from 2.8 at 1850 hours last night. Creatinine 1.38, stable. Phosphorus 1.6. Magnesium 2.1. IMPRESSION: 1. 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 I have discussed this with Dr. Alessandra Greenwood, who will see him in consultation to assist in medical management, as he has been unable to use his typical oral metoprolol. 2. Multiple bowel movements. Hopefully, a sign of resolution of his ileus, but will order a C. difficile. 3. Hypokalemia. I discussed with pharmacy. A K+ rider has been ordered. 4. Hypophosphatemia. Will be adjusted with his next TPN. 5. Leukocytosis. Multiple potential causes, but will repeat a CT scan of his abdomen and pelvis today. It will be done without contrast because of his creatinine and his ileus. 6. Activity: Again will try to get him out of bed. SUMMARY OF PLAN TODAY: 1. Replete potassium. 2. Adjust TPN. 3. Consult Alessandra Greenwood from Cardiology. 4. Stool for C. difficile. 5. CT scan abdomen and pelvis without contrast. 6. Increase activity. Addendum: C. diff + will start iv metronidazole and switch to oral vanco when n- g is out. CT scan improved no evidence of ileus/SBO and no evidence of abscess. MTDD
[2016-09-27] MEDS: TPN Per Pharmacist XX SCH (09:09)
--- NOTE | 2016-09-27 10:08 | DRSVH ---
PROCEDURE: CT ABDOMEN AND PELVIS WITHOUT CONTRAST ([id number]) INDICATIONS: abdominal distension after incision hernia repair TECHNIQUE: Noncontrast 5 mm thick sections acquired from the diaphragms to the symphysis. 5 mm coronal and sagi ttal reformats were then performed. For radiation dose reduction, the following was used: automated exposure control, adjustment of mA and/or kV according to patient size. COMPARISON: [facility], CT, CT ABD PELVIS WO CON, 01/18/2016, 15:54. [facility], CT, CT ABD PELVIS WO CON, 09/24/2016, 10:32. FINDINGS: Image quality: Excellent. ABDOMEN: Lung bases: Moderate atelectasis is present at the bilateral lung bases. There is a small low density left pleural effusion. These findings are slightly increased in extent when compared with the study dated 09/24/16. Solid organs: Liver and spleen are normal in size. Gallbladder is surgically absent. Pancreas is n ormal in contours. No adrenal nodules. Kidneys are normal in size, without hydronephrosis or nephro lithiasis. Peritoneum and bowel: When compared with the study dated 09/24/16, the bowel has an overall decompress ed appearance. No findings to suggest obstruction or ileus on the current study. Liquid stool is pres ent within the colon. Patient is status post right hemicolectomy. No free intraperitoneal fluid or pn eumoperitoneum. When compared with prior study, the low density midline subcutaneous fluid collection in the herniorr haphy bed has slightly decreased in size. This fluid collection measures 10.8 x 3.2 x 7.4 cm on the c urrent study (previously measured 11.5 x 3.7 x 8.1 cm). Nodes and vessels: No retroperitoneal or mesenteric adenopathy by size criteria. Aorta and inferior vena cava are normal in caliber. There are scattered atheromatous calcifications throughout the aor ta and iliac arteries bilaterally. Miscellaneous: No ventral hernias. PELVIS: Genitourinary: Bladder is decompressed and a Tyson catheter is present. Miscellaneous: No inguinal hernias or adenopathy. Bones: No suspicious bony lesions. The left iliac bone. No vertebral body compression fractures. IMPRESSION: 1. Increased basilar atelectasis and small left pleural effusion. Consolidation and pneumonia differe ntial considerations include basilar consolidation/pneumonia. 2. Decompression of the bowel when compared with study dated 09/24/16. No findings to suggest persiste nt ileus or obstruction. 3. Slight decrease in the size of the subcutaneous fluid collection in the herniorrhaphy bed. Dictated by: Charissa Vasquez M.D. on 09/27/2016 at 9:57 Approved by: Charissa Vasquez M.D. on 09/27/2016 at 10:07
--- NOTE | 2016-09-27 10:52 | PCM.PHAPRO ---
Progress TPN Management by Pharmacy: -Day 2 of TPN for pt with inadequate po intake, post-op ileus s/p hernia repair on 09/20/16 -NG tube still in place -K level =3 and phos 1.5 -ordered KPhos iv rider 40meq this morning -formula for this evening at 2100 as follows: PARENTERAL NUTRITION ORDERS 2 - Standard Hang Time: 2100 Substrates Total kcal: 912 AMINO ACIDS 50 g DEXTROSE 180 g Total Volume (mL): 1500 LIPIDS 10 g Sterile Water for Injection QS mL To Infuse Over (hrs): 24 Total Volume 1500 mL At at a rate of (mL/hr): 63 Additives Sodium Chloride 60 mEq "typical" daily requirements Sodium Acetate mEq Sodium 50-120mEq Potassium Chloride 60 mEq Potassium 60-120mEq Potassium Phosphate 30 mEq Phosphate 20-40mEq Calcium Gluconate 13.5 mEq Magnesium 8-32mEq Magnesium Sulfate 16 mEq Calcium 9-22mEq Acetate* 80-120mEq Chloride* 80-120mEq Regular Insulin units *Depending on acid-base status Famotidine mg Multivitamins 1 std dose Insulin Regimen Trace Elements 1 std dose none Thiamine 100 mg Regular Low Intensity Subcut Folic Acid 1 mg Regular Medium Intensity Subcut Ascorbic Acid mg Regular High Intensity Subcut Regular Insulin Infusion Other: -Potassium, Phos, Calcium adjusted on Day 2 Rose Ayala [facility] Sep 27, 2016 10:52
--- NOTE | 2016-09-27 11:48 | NUR ---
NUTRITION FOLLOW UP: ASSESS: 85 yo M admitted for incisional hernia. Postoperative day 7 following laparoscopic incisional hernia repair. TPN started over the weekend. K+/Phos low, Mg WNL. PMHX: HTN, COPD, PNA, gallbladder disease, cecal ca LABS: Reviewed. K+ 3.0, Cr 1.38, Glu 177, Phos 1.6, Ca 7.7 MEDS:Reviewed. Milk of Mag, fleet enema, tums, Reglan. GI: 10 BM 09/27. Stool being send to r/o C.diff. SKIN: Alejandro 18 CURRENT WT: 94.0 kg, BMI 28.9 kg/m2, Admit wt 91.5 kg DIET: NPO. ESTIMATED NEEDS: Calories: 5677-8949 kcal/day (25-30 kcal/kg BW) Protein: 90-110 g/day (1.0-1.2 g/kg BW) NUTRITION DIAGNOSIS: 1.) Inadequate oral intake related to altered GI function as evidence by pt refusing PO, reported abdomen distended/cramping and n/v---PERSISTS. NUTRITION INTERVENTION: 1.) Continue current TPN as ordered. Replete electrolytes as necessary. 2.) Once electrolytes WNL and TPN appears tolerated, recommend slow advancement to eventual goal of 400 g Dex, 110 g AA, 60 g lipids providing 2400 kcal, 110 g protein; meeting 100% of calorie/protein needs. MONITOR/EVALUATE: TPN tolerance/advance, GI, wt, POC, nutrition status. Follow per high nutrition risk guidelines.
--- NOTE | 2016-09-27 13:00 | NUR ---
C-Diff Pt placed on enteric precautions for C-Diff + Teaching done with pt and family on precautions and importance of hand washing. Pt has had frequent liquid BMs this am.
[2016-09-27] MEDS ORDERED: metroNIDAZOLE Inj 500 MG in IV Premix 1 EACH IV SCH (13:45)
--- NOTE | 2016-09-27 13:49 | NUR ---
Transfer Pt Transferred to room 2021, report given to Lynn Thomas RN, called and informed of room transfer.
[2016-09-27] MEDS: [UNRECOGNIZED DRUG - OTHER] IV SCH (14:58)
[2016-09-27] MEDS: ESMOLOL IV SCH (14:58)
[2016-09-27] MEDS: metroNIDAZOLE Inj 500 MG in IV Premix 1 EACH IV SCH ×2 (14:58→22:43)
[2016-09-27] MEDS: Insulin REGULAR SS Low-Dose SUBQ SCH ×2 (15:30→20:30)
[2016-09-27] MEDS ORDERED: KCl 40 mEq/500 mL D5W (K < 3 & Creat <2) IV ONE (17:15)
--- NOTE | 2016-09-27 17:43 | NUR ---
Transfer/Esmalol Pt was transferred to [facility] from [facility] at 1400. Esmalol drip started at 25mcg/kg/min for rate control. Rate is currently in the 70's to low 90's with no spikes over 100. BP's are 133/53, and the pt reports "feeling better" with the rate controlled. The pt has an NG tube set to med intermitt suction, and is on TPN.
[2016-09-27] MEDS: Total Parenteral Nutrition 1 BAG IV SCH (21:14)
[2016-09-28] VITALS (9 sets, daily range): BP systolic 107–130; BP diastolic 52–69; PULSE 69–83; RESP 14–22; O2SAT 92–97
[2016-09-28] MEDS: Heparin 5,000 Unit/mL Inj SUBQ SCH ×3 (00:16→17:11)
[2016-09-28] MEDS: Insulin REGULAR SS Low-Dose SUBQ SCH ×4 (02:30→20:30)
[2016-09-28 03:30] LABS: Mean Corpuscular Hemoglobin 32.1 pg (27.0-35.0); Mean Corpuscular Volume 101.3 fL (81-100)
[2016-09-28 03:44] LABS: Platelet Count 269 bil/L (150-400)
[2016-09-28 04:23] LABS: Magnesium 2.4 mg/dL (1.6-2.6); Phosphorus 2.4 mg/dL (2.5-4.9)
[2016-09-28 05:26] LABS: BASOPHILS % (AUTO) 0 % (0-3); EOSINOPHILS % (AUTO) 5 % (0-5); MONOCYTES % (AUTO) 9 % (4-12); NEUTROPHILS % (AUTO) 64 % (40-74)
[2016-09-28] MEDS: metroNIDAZOLE Inj 500 MG in IV Premix 1 EACH IV SCH ×3 (05:44→22:21)
--- NOTE | 2016-09-28 06:18 | NUR ---
loose stools pt incontinent of 5 yellow loose mucousy stools, pt unable to tell when he needs to go just that he has already gone.
[2016-09-28] MEDS: Pantoprazole 40 mg ER24 Tablet PO SCH ×2 (08:30→20:30)
[2016-09-28] MEDS: TPN Per Pharmacist XX SCH (08:30)
[2016-09-28] MEDS ORDERED: Potassium Phos (mEq) Inj 40 MEQ in Dextrose 5% 250 ML IV ONE (08:40)
--- NOTE | 2016-09-28 08:45 | PCM.PHAPRO ---
Progress tpn #3 3 28-Sep-16 Standard Hang Time: 2100 Substrates Total kcal: 912 AMINO ACIDS 50 g DEXTROSE 180 g Total Volume (mL): 1500 LIPIDS 10 g Sterile Water for Injection QS mL To Infuse Over (hrs): 24 Total Volume 1500 mL At at a rate of (mL/hr): 63 Additives Sodium Chloride 60 mEq "typical" daily requirements Sodium Acetate mEq Sodium 50-120mEq Potassium Chloride 80 mEq Potassium 60-120mEq Potassium Phosphate 40 mEq Phosphate 20-40mEq Calcium Gluconate 4.5 mEq Magnesium 8-32mEq Magnesium Sulfate 16 mEq Calcium 9-22mEq Acetate* 80-120mEq Chloride* 80-120mEq Regular Insulin units *Depending on acid-base status Famotidine mg Multivitamins 1 std dose Insulin Regimen Trace Elements 1 std dose none Thiamine 100 mg Regular Low Intensity Subcut Folic Acid 1 mg Regular Medium Intensity Subcut Ascorbic Acid mg Regular High Intensity Subcut Regular Insulin Infusion Other: Special Instructions: To be infused via central line only. For delay or inturruption of TPN contact the pharmacist for alternative replacement solution. MERVATG signed for Andrey Lopez on 11/10/16 Obey Lopez S Pharm D Sep 28, 2016 08:45 Lisandro Weller Nov 10, 2016 12:01
[2016-09-28] MEDS: ESMOLOL IV SCH (08:52)
[2016-09-28] MEDS: [UNRECOGNIZED DRUG - OTHER] IV SCH (08:52)
--- NOTE | 2016-09-28 08:54 | PROG NOTE ---
[address] [address] PROGRESS NOTE PATIENT: CARMEN COPELAND : 1930 MR#: [id number] ADMIT: 09/20/2016 JOB ID: [id number] DATE: 09/28/2016 SUBJECTIVE: The patient is seen in followup postoperative day eight following laparoscopic repair of an incisional hernia. He feels the same as yesterday. He denies abdominal pain. He was transferred to the second floor for an esmolol drip for rate control from his paroxysmal SVT. Regarding that, he feels significantly better. He denies nausea. He continues to have high NG outputs and struggling with hypokalemia. TPN has been adjusted. PHYSICAL EXAMINATION: Weight 93.8. Temperature is 36.5, brachial blood pressure 116/53, pulse 77, respiratory rate 18, O2 sat on 2 L 96%. He is alert, he looks comfortable. Abdomen is soft, nontender. Cardiac exam: Regular rhythm. NG tube 550 cc out overnight. Urine output 625 cc overnight. LABORATORY RESULTS: White blood cell count is 19.9 up from 15.3, hematocrit is 31.9, platelet count 269,000. Electrolytes, sodium 143, potassium 2.8. Creatinine is 1.4, glucose 137, magnesium is 2.4. IMPRESSION: 1. Ileus. Continues to have high nasogastric outputs. 2. Hypokalemia secondary to his nasogastric output and needs repletion. 3. Clostridium difficile colitis. He had 4-5 bowel movements during the night. Their volume is decreasing and have become mucoid. He is on IV Flagyl. 4. Junctional tachycardia. Again, a pre-existing condition. Currently with adequate rate control. 5. Nutrition, on total parenteral nutrition. 6. Leukocytosis. A CT scan yesterday showed no evidence of intra-abdominal infection or anatomic complication. His leukocytosis is likely secondary to Clostridium difficile. PLAN: 1. Will institute nurse potassium protocol. 2. Continue TPN. 3. Start clamping NG tube for 2 hours on and 2 hours off. 4. Continue IV Flagyl but if he does tolerate clamping of his NG tube, will start with some vancomycin via his NG tube. 5. Repeat labs tomorrow. 6. Increase activity.
[2016-09-28] MEDS: Lansoprazole 30 mg ODTablet PO SCH ×2 (09:19→22:21)
--- NOTE | 2016-09-28 10:36 | NUR ---
NUTRITION FOLLOW UP: ASSESS: 85 yo M admitted for incisional hernia. Postoperative day 7 following laparoscopic incisional hernia repair. TPN started over the weekend. TPN continues at same rate today while monitoring labs. K+/Phos remains low, Mg WNL. PMHX: HTN, COPD, PNA, gallbladder disease, cecal ca LABS: Reviewed. K+ 2.8, Gluc 137, Ca 7.9, Alb 2.4, Phos 2.4 MEDS: Reviewed. GI: 5 BM 09/28. Pt is positive for C diff and continues to have diarrhea. SKIN: Alejandro 17 Blisters on abdomen, abrasion noted on right leg CURRENT WT: 93.8 kg, BMI 28.8 kg/m2, Admit wt 91.5 kg DIET: NPO NUTRITION SUPPORT: TPN started 09/27 @ 50g AA, 180g Dextrose, 10g Lipids to provide 912 kcal and 50g protein (38% kcal needs and 45% protein needs) ESTIMATED NEEDS: Calories: 8539-7361 kcal/day (25-30 kcal/kg BW) Protein: 90-110 g/day (1.0-1.2 g/kg BW) NUTRITION DIAGNOSIS: 1.) Inadequate oral intake related to altered GI function as evidence by pt refusing PO, reported abdomen distended/cramping and n/v---PERSISTS. NUTRITION INTERVENTION: 1.) Continue current TPN as ordered. Replete electrolytes as necessary. 2.) Recommend advancing TPN if electrolytes WNL and TPN tolerated to 75g AA, 250g Dextrose, and 35g Lipids to provide 1500 kcal and 75g protein (63% kcal needs and 68% protein needs). 3.) Once TPN appears tolerated, recommend continued advancement to eventual goal of 400 g Dex, 110 g AA, 60 g lipids providing 2400 kcal, 110 g protein; meeting 100% of calorie/protein needs. 4.) Advance diet when medically appropriate. MONITOR/EVALUATE: TPN tolerance/advance, GI, wt, POC, nutrition status. Follow per high nutrition risk guidelines. Addendum: 09/28/16 at [address] Pt continues to have NGT in place. I have read and agree with above student documentation. Cordelia Conn, TYLER, CD
--- NOTE | 2016-09-28 10:41 | NUR ---
Evaluation completed. Please go to "Notes" then click on "Assessments and Notes" (bottom left corner of screen). Then select appropriate discipline tab on top of screen.
--- NOTE | 2016-09-28 14:37 | PROG NOTE ---
[address] [address] PROGRESS NOTE PATIENT: CARMEN COPELAND : 1930 MR#: [id number] ADMIT: 09/20/2016 JOB ID: [id number] DATE: 09/28/2016 SUBJECTIVE: Yesterday, I was asked to assess him, as he was having periods of supraventricular tachycardia and he was unable to take his p.o. medications that include metoprolol. He has been transferred to telemetry floor. He is now on esmolol and has much improved heart rates which has helped the patient as well. PLAN: Will continue with esmolol drip as long as the patient cannot take p.o. Once he is able to take oral medications, we can transition him back to his oral metoprolol.
--- NOTE | 2016-09-28 18:20 | NUR ---
Esmalol/BM's/K+ The pt continued on the esmalol drip today at 25mcg/kg/min with good rate control. 6 loose, mucus stools occured during the shift - most incontinent. The pt is agreeable to attempting to notify the nurse/aid of when the urge first begins, with the hopes of getting him on a bedpan. The pt K+ has been chronically low secondary to diarrhea and the NG tube. The nurse driven K/Mg protocol has been initiated.
[2016-09-28] MEDS ORDERED: KCl 20 mEq/100 mL IV Premix (K 3 - 3.7 & Cr 2.1 - 2.9) IV ONE ×2 (20:10→23:05)
[2016-09-28] MEDS ORDERED: 0.9% Sodium Chloride 250 ML ONE (21:01)
[2016-09-28] MEDS: Total Parenteral Nutrition 1 BAG IV SCH (21:14)
[2016-09-29] VITALS (7 sets, daily range): BP systolic 110–129; BP diastolic 53–61; PULSE 67–84; RESP 16–20; O2SAT 98–99
[2016-09-29] MEDS: Heparin 5,000 Unit/mL Inj SUBQ SCH ×3 (00:04→16:32)
[2016-09-29] MEDS: [UNRECOGNIZED DRUG - OTHER] IV SCH ×2 (02:05→22:41)
[2016-09-29] MEDS: Insulin REGULAR SS Low-Dose SUBQ SCH ×4 (02:05→20:20)
[2016-09-29] MEDS: ESMOLOL IV SCH ×2 (02:05→22:41)
--- NOTE | 2016-09-29 04:28 | NUR ---
Potassium / Rash / Respiratory Pt K at HS 2.6; K/Mg replacement protocol initiated but d/t protocol contraindication in patients receiving TPN, night on-call surgeon Moose wang for clarification. Per MD communication, if pharmacy unable to adjust 09/28/16 HS concentration of K in TPN, utilizing K/Mg protocol would be acceptable for this shift. 40MeQ potassium replacement IV ordered per pharmacy and administered. Lab redraw in AM 4hrs post infusion. New onset large rash to pt's back; pt denies discomfort, charge nurse consulted. No acute changes this shift, continuing to monitor. Pt on RA throughout shift, intermittently requiring 2-4L NC d/t spontaneous desaturation with exertion. Once at rest, pt on RA with SpO2 96%. VSS, esmolol gtt infusing at 25mcg/kg/min, TPN infusing, gao draining yellow urine to gravity, NGT intermittently on MIWS alternating with rest periods of tubing clamped Q2H. Approx. 50ml output this shift, dark brown fluid. Pt denies pain. Tele SR 60s-80s.
[2016-09-29] MEDS: metroNIDAZOLE Inj 500 MG in IV Premix 1 EACH IV SCH (06:08)
[2016-09-29] MEDS: Lansoprazole 30 mg ODTablet PO SCH ×2 (08:30→20:06)
[2016-09-29] MEDS: Pantoprazole 40 mg ER24 Tablet PO SCH (08:30)
[2016-09-29] MEDS: TPN Per Pharmacist XX SCH (08:30)
[2016-09-29] MEDS ORDERED: KCl 40 mEq/100 mL (CENTRAL) 40 MEQ in IV Premix 1 EACH IV ONE (08:35)
--- NOTE | 2016-09-29 09:12 | PROG NOTE ---
[address] [address] PROGRESS NOTE PATIENT: CARMEN COPELAND : 1930 MR#: [id number] ADMIT: 09/20/2016 JOB ID: [id number] DATE: 09/29/2016 SUBJECTIVE: The patient is seen in followup. He continues to have multiple incontinent stools. Thought he was getting better but has actually just had another incontinent stool. He again denies abdominal pain. He denies nausea. DATE: PHYSICAL EXAMINATION: Temperature 36.7, brachial blood pressure 126/59, pulse 71, respiratory rate 18, O2 sat on 2 L is 98%. Abdomen: Soft, nontender. NG tube only 50 cc out overnight. Urine output 650 cc overnight. LABORATORY RESULTS: Sodium 142, potassium 2.8. Creatinine is 1.23. Glucose 115. IMPRESSION: 1. Clustered in difficile colitis symptomatically persisting. Because of his ileus, we have not been able to use oral vancomycin. We will continue with IV metronidazole. 2. Ileus appears to be resolving. He only had 50 cc out his NG overnight. Will clamp his NG tube for 4 hours, and if the residual is under 100 cc, will remove his NG and then start oral vancomycin. 3. Paroxysmal junctional tachycardia controlled on esmolol. Again when taking adequate oral, then will be able to switch him back to his usual metoprolol. 4. Hypokalemia. Will continue to replete and hopefully with getting his NG out will be able to catch up on his potassium depletion.
--- NOTE | 2016-09-29 11:30 | NUR ---
DC NGT Order from DR. Alex Park to check pt's residual at about 1130, if less than 100ml to DC NGT. Residual checked 25ml, NGT discontinued. Procedure for NGT discontinuance explained. Pt is agreeable and verbalized understanding. NGT discontinued per hospital protocol. Pt tolerated procedure well.
--- NOTE | 2016-09-29 12:37 | PCM.PHAPRO ---
Progress I. Fluid balance II. Chem III. Glycemic control IV. Substrate PARENTERAL NUTRITION ORDERS 4 29-Sep-16 Standard Hang Time: 2100 Substrates Total kcal: 912 AMINO ACIDS 50 g DEXTROSE 180 g Total Volume (mL): 1500 LIPIDS 10 g Sterile Water for Injection QS mL To Infuse Over (hrs): 24 Total Volume 1500 mL At at a rate of (mL/hr): 63 Additives Sodium Chloride 60 mEq "typical" daily requirements Sodium Acetate mEq Sodium 50-120mEq Potassium Chloride 100 mEq Potassium 60-120mEq Potassium Phosphate 40 mEq Phosphate 20-40mEq Calcium Gluconate 4.5 mEq Magnesium 8-32mEq Magnesium Sulfate 16 mEq Calcium 9-22mEq Acetate* 80-120mEq Chloride* 80-120mEq Regular Insulin units *Depending on acid-base status Famotidine mg Multivitamins 1 std dose Insulin Regimen Trace Elements 1 std dose none Thiamine mg Regular Low Intensity Subcut Folic Acid mg Regular Medium Intensity Subcut Ascorbic Acid mg Regular High Intensity Subcut Regular Insulin Infusion Other: Obey Lopez Pharm D Sep 29, 2016 12:37 Lisandro Weller Nov 10, 2016 12:00
--- NOTE | 2016-09-29 14:06 | NUR ---
NUTRITION FOLLOW UP: ASSESS: 85 yo M admitted for incisional hernia. Postoperative day 9 following laparoscopic incisional hernia repair. TPN started 09/27. TPN continues at same rate today while monitoring labs. Electrolytes are slowly normalizing, however K remains low. Per GI, ileus is improving. PMHX: HTN, COPD, PNA, gallbladder disease, cecal ca LABS: Reviewed. K 2.8, Glu 115, Ca 7.6, Albumin 2.4 MEDS: Reviewed. GI: 6 BM 09/29. Pt is positive for C diff and continues to have diarrhea. SKIN: Alejandro 17 - Blisters on abdomen, abrasion noted on right leg CURRENT WT: 94.5 kg, BMI 28.8 kg/m2, Admit wt 91.5 kg DIET: NPO NUTRITION SUPPORT: TPN started 09/27 @ 50g AA, 180g Dextrose, 10g Lipids to provide 912 kcal and 50g protein (38% kcal needs and 45% protein needs) ESTIMATED NEEDS: Calories: 8839-6328 kcal/day (25-30 kcal/kg BW) Protein: 90-110 g/day (1.0-1.2 g/kg BW) NUTRITION DIAGNOSIS: 1.) Inadequate oral intake related to altered GI function as evidence by pt refusing PO, reported abdomen distended/cramping and n/v---PERSISTS. NUTRITION INTERVENTION: 1.) Continue current TPN as ordered. Replete electrolytes as necessary. 2.) Recommend advancing TPN once electrolytes WNL and TPN tolerated to 75g AA, 250g Dextrose, and 35g Lipids to provide 1500 kcal and 75g protein (63% kcal needs and 68% protein needs). 3.) Once TPN appears tolerated, recommend continued advancement to eventual goal of 400 g Dex, 110 g AA, 60 g lipids providing 2400 kcal, 110 g protein; meeting 100% of calorie/protein needs. 4.) Advance diet when medically appropriate. MONITOR/EVALUATE: TPN tolerance/advance, GI, wt, POC, nutrition status. Follow per high nutrition risk guidelines.
[2016-09-29] MEDS: Vancomycin 125 mg Oral Capsule PO SCH ×2 (15:51→20:07)
--- NOTE | 2016-09-29 19:25 | NUR ---
Diet pt now on a clear liquid diet per . Pt tolerating PO intake at this time. Report given to oncoming SAL.
[2016-09-29] MEDS ORDERED: KCl 40 mEq/100 mL IV Premix (K < 3 & Creat <2) IV SCH (21:15)
[2016-09-29] MEDS ORDERED: KCl 40 mEq/100 mL IV Premix (K < 3 & Creat <2) IV ONE (21:18)
[2016-09-30] VITALS (11 sets, daily range): BP systolic 109–144; BP diastolic 62–75; PULSE 70–88; RESP 14–22; O2SAT 93–98
--- NOTE | 2016-09-30 00:34 | NUR ---
BM/ESMALOL/K+ Pt continues to be on 25mcg/kg/min Esmalol drip till AM rounds, Dr. Morillo to d/c drip in the AM. Pt denied any loose stools @ beginning of shift, but had 4 loose stools from 8318-2543. Pt SBA to BSC, vitals stable. Pt had a recent potassium of 2.8, IV Potassium Chloride 40 mEq x2 started @ 2114. Pt still on enteric precautions for C-diff. TPN D/C'd @ 2129. No other issues noted at this time.
[2016-09-30] MEDS: Insulin REGULAR SS Low-Dose SUBQ SCH ×4 (02:30→20:30)
[2016-09-30] MEDS: Vancomycin 125 mg Oral Capsule PO SCH ×4 (03:02→20:54)
[2016-09-30] MEDS: Heparin 5,000 Unit/mL Inj SUBQ SCH ×4 (03:02→20:55)
[2016-09-30 06:37] LABS: Mean Corpuscular Hemoglobin 31.8 pg (27.0-35.0); Mean Corpuscular Volume 100.7 fL (81-100); Platelet Count 269 bil/L (150-400)
[2016-09-30 06:50] LABS: Magnesium 2.3 mg/dL (1.6-2.6)
[2016-09-30 07:37] LABS: BASOPHILS % (AUTO) 0 % (0-3); EOSINOPHILS % (AUTO) 3 % (0-5); MONOCYTES % (AUTO) 12 % (4-12); NEUTROPHILS % (AUTO) 59 % (40-74)
[2016-09-30] MEDS ORDERED: Potassium Chloride 20 mEq SR Tablet PO ONE ×2 (08:15→16:30)
[2016-09-30] MEDS: Lansoprazole 30 mg ODTablet PO SCH ×2 (08:30→20:54)
--- NOTE | 2016-09-30 08:40 | PROG NOTE ---
[address] [address] PROGRESS NOTE PATIENT: CARMEN COPELAND : 1930 MR#: [id number] ADMIT: 09/20/2016 JOB ID: [id number] DATE: 09/30/2016 SUBJECTIVE: The patient is seen in followup postoperative day 10 following repair of his incisional hernia done laparoscopically with mesh. He is feeling much better this morning. NG successfully removed yesterday. He is on now oral vancomycin for C. difficile. Continues to have multiple bowel movements. He had a total of 14 bowel movements listed for yesterday. He had four loose bowel movements between 8 p.m. and midnight yesterday. He has tolerated clear liquids without nausea and vomiting. He denies abdominal pain. TPN has been stopped. PHYSICAL EXAMINATION: Temperature 36.7, brachial blood pressure 124/64, pulse 72, respiratory rate 18, O2 sat on 2 L is 98%. Abdomen is soft, nontender. Scabbing from his blisters is unchanged. LABORATORY RESULTS: White blood cell count has started to drop. It is now 18.4 from 19.9 yesterday. Hematocrit 30.4, platelet count 269. His potassium is now at 3.5. Creatinine 1.2. Glucose this morning 93. Magnesium 2.3. IMPRESSION: 1. Ileus, resolved. Will add Impact to his diet today. I do not want to have him have any high fat foods today so will just start Impact and then progress his diet more tomorrow. 2. Hypokalemia. His potassium is within normal limits, but I suspect he has a total potassium deficit as in addition to his NG losses and losses from his diarrhea, he is on Lasix at home. 3. Paroxysmally junctional tachycardia. He is still on an esmolol drip and will await Dr. Greenwood's decision, but he should be able to take oral metoprolol at a standard dose. DISPOSITION: I think he will be able to be discharged to home. Will need to be on vancomycin for approximately two weeks. Might be able to be discharged Tuesday or Tuesday. He has to demonstrate better strength and obviously better control of his diarrhea.
--- NOTE | 2016-09-30 12:22 | CONS ---
[address] [address] CONSULTATION REPORT PATIENT: CARMEN COPELAND : 1930 MR#: [id number] ADMIT: 09/20/2016 JOB ID: [id number] DATE OF SERVICE: 09/30/2016 CHIEF COMPLAINT: I was asked by the surgery team to consult on this patient given a history of SVT and recent problems with the ileus, not able to take p.o. meds. HISTORY OF PRESENT ILLNESS: The patient is an 85-year-old man with past medical history significant for SVT which may be either atrial tachycardia versus accelerated junctional tachycardia. He had fairly recent surgery for an incarcerated incisional hernia, which was successfully repaired. Unfortunately, he had significant ileus afterward and was not able to take his oral medicines, including his metoprolol. They were treating him with occasional boluses of IV metoprolol, but this was not successful in terms of controlling the periods of the his arrhythmia. The patient was symptomatic with this as well. Given this, we transferred him to the second floor and while he had NG tube in place and was unable to take p.o. and had him on an esmolol drip. On the esmolol drip he did very well. He had not had any significant tachy arrhythmias and certainly was not symptomatic with this. Fortunately, he his ileus has now resolved. His NG tube was removed and he is taking p.o. once again. He now unfortunately has diarrhea and he is being treated for C. difficile; however, overall he is doing well. He denies any problems with significant palpitations, shortness of breath, chest pain, orthopnea, PND, lower extremity edema, presyncope or syncope. PAST MEDICAL HISTORY/PROBLEM LIST: 1. History of a supraventricular arrhythmia, either a junctional tachycardia versus atrial tachycardia. 2. History of abdominal hernia with recent incisional hernia repair. MEDICATIONS: As an outpatient included: 1. Amitriptyline 25 mg a day. 2. Furosemide half tablet every day 20 mg. 3. Lisinopril 5 mg daily. 4. Lunesta. 5. Metoprolol succinate 1 tablet 2 times a day. 6. Prazosin 5 mg daily. 7. He was also had been given propranolol to take as needed for episodes of palpitations. ALLERGIES: 1. CODEINE. 2. POLYETHYLENE GLYCOL. SOCIAL HISTORY: He never smoked. No significant alcohol use. FAMILY HISTORY: No early coronary disease. REVIEW OF SYSTEMS: Overall health: No fevers, chills, night sweats or weight loss. GI: Has had ongoing problems with ileus which is now resolved, but now has diarrhea, but these are not chronic issues. Pulmonary: No history of shortness of breath. Cardiac: As per HPI. Endocrine: No heat or cold intolerance. Heme: No easy bruising or bleeding. Neuro: No chronic headaches. Ophthalmologic: No vision changes. Derm: No skin breakdown. Musculoskeletal: No joint pain or swelling. Psych: No acute issues. ENT: No difficulty swallowing or sore throat. All review of systems on a 12 point review of system are negative. PHYSICAL EXAMINATION: Blood pressure is 124/64, heart rate 72. He is afebrile. Sats 98% on 2 L. General: In no acute distress. Speaking in full sentences without apparent shortness of breath. Head and neck exam: Normocephalic, atraumatic. Neck: I do not appreciate obvious JV distention. vascular: no carotid bruits appreciated. Heart exam: Regular rate and rhythm. I do not appreciate murmurs, gallops or rubs. Lungs: Clear to auscultation anteriorly. Back: No CVA tenderness to palpation. Abdomen: I can appreciate bowel sounds. He is nontender with palpation. Extremities: Warm. No appreciable edema. 2+ distal pulses. Skin without breakdown appreciated. Neurologic: Alert and oriented x3. Gait is not tested. Psych: Appropriate mood and affect. ENT: mucous membranes moist. Vision: grossly intact DIAGNOSTIC DATA: EKG: I do not have a current EKG to review, but I reviewed telemetry. Other cardiology studies show an echocardiogram which shows an EF in the range of 45- 50%. No significant valvular disease, mild to moderate mitral regurgitation. Also has a stress test which was performed in 2016 which actually showed the EF was 60% and no EKG evidence of ischemia as well. I have reviewed his most recent cardiology note and again it appears that his current dose of metoprolol succinate is on b.i.d. dosing 25 mg. PLAN/RECOMMENDATIONS: I have already changed him to the oral metoprolol dose 25 b.i.d. I discontinued the propranolol as this is for p.r.n. use, and I also will have him stop the esmolol once the metoprolol gets started. Other decisions could be made by the surgery team. Patient would like to be put on remote telemetry so he can get up and walk around and we will discuss this with the surgery team. I spent 1 hours reviewing the patient's old records, reviewing telemetry, speaking with and examining the patient and communicating with the surgical team and his nurse BEATRICE
--- NOTE | 2016-09-30 15:08 | NUR ---
Social Work: Readiness for Discharge D: EMR reviewed of pt's care. Pt is on day 10 of stay. Pt ileus has resolved; TPN has been stopped and pt is tolerating an advanced diet. Per Progress notes, pt is anticipate to be able to discharge home in 1-2 days with oral abx. Pt has been ambulation 150-200 feet SBA. No social work needs identified at this time. HAZARDOUS SUBSTANCES ENGINEER met with pt at bedside for reassessment and to confirm dcp. Pt lives at home with his spouse. He is I at baseline and states he has no concerns with d/c home. Pt states his spouse will transport. A: Pt who is I at baseline. P: Anticipate pt to discharge home via POV once medically stable; HAZARDOUS SUBSTANCES ENGINEER to continue to follow ESE Caceres
--- NOTE | 2016-09-30 18:46 | NUR ---
Cardiac Pt DC'd Esmolol, started on Metoprolol per physician order and tolerating med change well. Upgraded to a liquid diet without complication. Addendum: 09/30/16 at 1852 by ROBB CATHERINE No IV fluids running. 5 loose stools throughout day
--- NOTE | 2016-09-30 19:34 | NUR ---
Cardiac check with engineering technology instructor, pt SR 70s with intermittent bouts in the 120s through the day after esmolol discontinued. However pt more active in room since being off MP30. Report given to oncoming SAL
[2016-10-01] VITALS (8 sets, daily range): BP systolic 96–161; BP diastolic 57–83; PULSE 65–100; RESP 16–20; O2SAT 94–97
--- NOTE | 2016-10-01 01:16 | NUR ---
BM/ACTIVITY Pt off MP30 and able to move easier in room. Pt SBA to BR, loose stools x2 as of 0100, significantly less than the previous night. Pt up walking the halls with FURNACE FITTER with walker, steady gait. Vitals stable, gao patent, jenelle urine. No c/o pain or discomfort. No other issues noted at this time.
[2016-10-01] MEDS: Insulin REGULAR SS Low-Dose SUBQ SCH ×4 (02:30→20:30)
[2016-10-01] MEDS: Vancomycin 125 mg Oral Capsule PO SCH ×4 (02:37→21:27)
[2016-10-01] MEDS: KCl 40 mEq/500 mL D5W (K < 3 & Creat <2) IV SCH ×2 (05:51→11:56)
--- NOTE | 2016-10-01 06:00 | NUR ---
POTASSIUM Pt had a 2.8 K+ for morning labs, 40 mEq x2 IV K+ rider started @ 0550 per K+/Mag protocol. Pt's vitals hypertensive 161/82, weaned from 2L O2 NC to RA.
--- NOTE | 2016-10-01 06:26 | NUR ---
TRANSFER Pt transferred to [facility] @ 3341, report given to Jamshid Webster RN. Pt transferred via wheelchair with all of his belongings.
--- NOTE | 2016-10-01 08:28 | PCM.PNSURG ---
Subjective Date of Service: Oct 01, 2016 Visit Information: Reason for Visit Incisional Hernia Surgery/Surgery Date HERNIA REPAIR 09/20/16 Post-Op Day # 11 Date of Admission: Sep 20, 2016 at 11:27 Hospital Day # Subjective: Drinking liquids with no nausea or vomiting, requesting more food. Has not received impact. Only had 3 bowel movements over the last 12 hours. Denies pain. Ambulatory in the room. Postop General: No Complaints, No Shortness of Breath, No Chest Pain Gastrointestinal: Good Appetite, Tolerating Oral Feedings, No N/V, Passing Stool Pain Management: PO Postop Activity: Ambulating in Room Only Objective Vital Sign- Last 8 Hours Date Time Temp Pulse Resp B/P Pulse Ox O2 Delivery O2 Flow Rate FiO2 10/01/16 05:20 36.5 65 16 161/82 94 Room Air 10/01/16 04:54 75 10/01/16 03:13 Supplement Oxygen Intake and Output- Last 8 Hour 10/01/16 Cumulative From/Thru 07:00 09/16/16 13:44 - 10/01/16 05:20 Intake Total 400 ml 50414 ml Output Total 750 ml 23779 ml Balance -350 ml 90533 ml Intake Oral 400 ml 7220 ml IV Total 17476 ml TPN/PPN 1498 ml Output Urine Total 750 ml 29657 ml Stool Total 706 ml Gastric Drainage Total 6700 ml Emesis 325 ml Estimated Blood Loss 20 ml # Bowel Movements 3 52 General: Alert, Cooperative, No Acute Distress Lungs: Clear to Auscultation Heart: Regular Rate/Rhythm Abdomen: Soft, Non-tender, Non-distended SURGICAL WOUND : Wound General Appearence: Sutures, Intact, No Erythema, Other (stable tape blisters) Extremities: Thigh&Calf Soft/Nontender Neuro: Normal Speech Catheters: Urethral 2 Way Tyson Result Diagram: 09/30/16 0610 10/01/16 0250 Assessment & Plan Impression Primary diagnosis: 1. Incarcerated incisional hernia. POD #11 with resolution of ileus, now tolerating a liquid diet. 2. Paroxysmal junctional tachycardia 3. Hypokalemia 4. Postsurgical ileus, resolved. 5. C. difficile colitis, bowel movements less frequent now. Other diagnoses: 1. History of anemia 2. BPH 3. Cervical degenerative disc disease 4. Chronic renal impairment 5. COPD 6. Fibromyalgia 7. Hemorrhoids 8. Essential hypertension 9. Osteoarthritis 10. Sleep apnea 11. History of junctional tachycardia 12. Insomnia Problems: Plan 1. Increase diet as tolerated. 2. 40 mEq of potassium this morning in addition to the IV potassium that he is already receiving. 3. Remove Tyson catheter. 4. Serum potassium at noon. 5. Repeat labs in the morning. Pain Management: Oral Tylenol Oxycodone VTE Prophylaxis: Sub-Q Heparin (Unfractionated) Haider Peña PA-C Oct 01, 2016 08:28
[2016-10-01] MEDS ORDERED: Potassium Chloride 20 mEq SR Tablet PO ONE (08:30)
[2016-10-01] MEDS ORDERED: VANC125C3 PO (08:55)
[2016-10-01] MEDS: Lansoprazole 30 mg ODTablet PO SCH ×2 (09:53→21:27)
[2016-10-01] MEDS: Heparin 5,000 Unit/mL Inj SUBQ SCH ×2 (09:54→17:02)
--- NOTE | 2016-10-01 11:42 | NUR ---
NUTRITION FOLLOW UP: ASSESS: 85 yo M admitted for incisional hernia. Postoperative day 11 following laparoscopic incisional hernia repair. TPN started 09/27 and stopped 09/29. Diet advanced to full liquids. Diarrhea is improving. K remains low. PMHX: HTN, COPD, PNA, gallbladder disease, cecal ca LABS: Reviewed. K 2.8, Ca 7.5 MEDS: Reviewed. GI: 3 BM 2/. SKIN: Alejandro 17 - Blisters on abdomen, abrasion noted on right leg CURRENT WT: 95.5 kg, BMI 29.4 kg/m2, Admit wt 91.5 kg DIET: Full liquid + Ensure TID, PO 40-100% ESTIMATED NEEDS: Calories: 7675-2280 kcal/day (25-30 kcal/kg BW) Protein: 90-110 g/day (1.0-1.2 g/kg BW) NUTRITION DIAGNOSIS: 1.) Inadequate oral intake related to altered GI function as evidence by pt refusing PO, reported abdomen distended/cramping and n/v---IMPROVED NUTRITION INTERVENTION: 1.) Continue advancing diet as tolerated MONITOR/EVALUATE: PO intake, GI, wt, POC, nutrition status. Follow per moderate nutrition risk guidelines.
--- NOTE | 2016-10-01 12:51 | NUR ---
BELL Bell discontinued at 0945 per MD order without pain or discomfort. Patient is able to void spontaneously by 1000 and continues to deny discomfort. Bed low and locked, call light in reach, care and frequent rounding ongoing.
--- NOTE | 2016-10-01 21:00 | NUR ---
restless patient is restless. states "the bed is not comfortable. i've been lying down too much." offered to find an arm chair /recliner for the patient. non available at this time listened to patient's concerns, story of hospitalization, and desire to go home. given emotional support. care ongoing.
[2016-10-02 00:47] VITALS: BP 137/76; PULSE 95; RESP 16; O2SAT 94
[2016-10-02] MEDS: Heparin 5,000 Unit/mL Inj SUBQ SCH ×2 (01:33→09:32)
[2016-10-02] MEDS: Insulin REGULAR SS Low-Dose SUBQ SCH ×3 (01:34→11:40)
[2016-10-02] MEDS: Vancomycin 125 mg Oral Capsule PO SCH ×3 (01:34→14:38)
[2016-10-02 05:19] VITALS: BP 143/79; PULSE 108; RESP 18; O2SAT 95
[2016-10-02 05:55] VITALS: PULSE 81
[2016-10-02 07:00] LABS: BASOPHILS % (AUTO) 0.8 % (0-3); EOSINOPHILS % (AUTO) 3.1 % (0-5); MONOCYTES % (AUTO) 9.4 % (4-12); Mean Corpuscular Volume 97.2 fL (81-100); NEUTROPHILS % (AUTO) 64.9 % (40-74); Platelet Count 310 bil/L (150-400)
[2016-10-02] MEDS ORDERED: KCl 40 mEq/D5W 500 mL 40 MEQ in IV Premix 1 EACH IV ONE (08:10)
[2016-10-02] MEDS ORDERED: KCl 40 mEq/100 mL (CENTRAL) 40 MEQ in IV Premix 1 EACH IV ONE (08:20)
[2016-10-02] MEDS ORDERED: POTA20TA16 PO (09:15)
--- NOTE | 2016-10-02 09:17 | PCM.DISURG ---
Surgical Discharge Instruction Date of Service Oct 02, 2016 Dates of Hospitalization Date of Hospital Admission Sep 20, 2016 at 11:27 Providers Admitting Physician: Parveen Johnson MD Primary Care Physician: Hudson Coates MD Attending Physician: Parveen Johnson MD Discharge Diagnosis Discharge Diagnosis Hernia Repair C. Diff Colitis Diet Discharge Diet: No restrictions Activity Discharge Activity-General: Be up and about, Balance rest and activity Dressing and Incisional Care Hygiene: May shower Additional Instructions Discharge Instructions Must complete full course of antibiotics Follow Up Plan Follow Up Plan F/U with on Tuesday with Basic Metabolic Panel labs to reassess Potassium level Call your provider for: Fever, Chills, Increasing abdominal pain, Nausea, Vomiting Sea Perez MD Oct 02, 2016 09:17
--- NOTE | 2016-10-02 09:23 | NUR ---
ABISAI signed 9:13AM ESE Romero
--- NOTE | 2016-10-02 09:43 | PROG NOTE ---
[address] [address] PROGRESS NOTE PATIENT: CARMEN COPELAND : 1930 MR#: [id number] ADMIT: 09/20/2016 JOB ID: [id number] DATE: 10/02/2016 SUBJECTIVE: The patient is seen postoperative day 12 from his laparoscopic repair of incarcerated incisional hernia with mesh which was postoperatively complicated by an ileus and then C. difficile colitis. The patient is fine overnight. He is very eager to go home. He has remained afebrile. He has been hemodynamically normal other than a single episode of tachycardia to 108 recorded at five this morning. Subsequent check was 81. This morning he is alert and oriented and comfortable. His abdomen is soft, nontender, nondistended. He has the obvious seroma in the area of the hernia repair but denies any tenderness and there is no erythema. Yesterday he had a total of just over a liter of oral intake with additional 800 overnight. He had 1100 of urine out yesterday with an additional 1400 overnight. He had nine bowel movements yesterday recorded and had four additional overnight. His white blood cell count is tracking down. It was 18.4 yesterday. It was 17.2 this morning. His potassium was doing better. It was 3.6 yesterday afternoon and it was 3.1 this morning compared to 2.8 yesterday morning. ASSESSMENT AND PLAN: This is an 85-year-old man with multiple medical comorbidities 12 days out from a laparoscopic ventral incisional hernia repair complicated by an ileus and then C. difficile colitis. The patient is overall doing well. He is very eager to go home. He feels that he is in adequate condition to go. The thing that has been keeping him in the hospital has been his hypokalemia. This is doing much better. It was a little bit low this morning but not severely. I am going to give him 40 mEq of potassium IV this morning. Then I think it is fine for him to go home. I will send him home with 20 mEq oral twice a day and have him follow up with early next week for a recheck of his potassium level. He has also been given a prescription for oral vancomycin. I discussed indications to seek immediate medical attention.
--- NOTE | 2016-10-02 10:16 | NUR ---
Social Work: Discharge Data: Pt is on day 12 of hospitalization. EMR reviewed. D/C orders are in. No d/c planning needs identified. TRACTOR MECH[employer]IC HELPER will continue to follow if needs arise. Assessment: Pt who is independent at baseline. Plan: Pt will d/c home via POV with today. No d/c planning needs identified. TRACTOR MECHANIC HELPER will continue to follow if needs arise. ESE Romero
[2016-10-02 10:35] VITALS: PULSE 90
[2016-10-02 10:36] VITALS: BP 106/59; PULSE 91; RESP 18; O2SAT 95
[2016-10-02] MEDS: Lansoprazole 30 mg ODTablet PO SCH (10:41)
--- NOTE | 2016-10-02 13:44 | NUR ---
Student Nurse Note P - Pt has been having frequent loose stools through entire shift. Morning medications were administered. Pt has had mild abdominal cramping, but denies nausea at this time. Pt has blood potassium level of 3.1. I - Further administration of PO vancomycin indicated. Pt is also receiving IV potassium through central line at 25mL/hr. Pt will be sent home with PO ABX and potassium. E - No changes noted at this time. Pt resting comfortably.
[2016-10-02 14:57] VITALS: BP 143/77; PULSE 95; RESP 18; O2SAT 98
--- NOTE | 2016-10-02 15:15 | NUR ---
Discharge Reviewed d/c instructions with pt and spouse in room including care notes and new prescriptions, pt signed and given originals, copies to chart. IV PICC line d/c by IV therapist intact, tele removed. VS stable at time of d/c. All belongings packed by pt and spouse in room before leaving. Pt taken off unit via WC to car below for ride home.
--- NOTE | 2016-10-04 14:38 | PCM.DC.SUR ---
Discharge Summary Date of Service: Date of Hospital Admission: Sep 20, 2016 at 11:27 Date of Operation(s): 09/20/2016 Date of Discharge: 10/02/2016 Diagnosis at Time of Discharge Primary diagnosis: 1. Incarcerated incisional hernia. 2. Paroxysmal junctional tachycardia 3. Hypokalemia 4. Postsurgical ileus 5. C. difficile colitis 6. Paroxysmal SVT. Other diagnoses: 1. History of anemia 2. BPH 3. Cervical degenerative disc disease 4. Chronic renal impairment 5. COPD 6. Fibromyalgia 7. Hemorrhoids 8. Essential hypertension 9. Osteoarthritis 10. Sleep apnea 11. History of junctional tachycardia 12. Insomnia Problems: Operation Laparoscopic repair of incarcerated incisional hernia with mesh Brief History and Physical: The patient is an 85-year-old man who had a laparoscopic right colectomy for right colon cancer in August 2015. He developed a postoperative ileus resulting in a marked abdominal wall distention and developed an incisional hernia at the specimen extraction incision which was in a periumbilical location. He had an SVT and was seen preoperatively by Dr. Cornelio Callejas and received cardiology clearance. Consultants: Cardiology Hospital Course: The patient was admitted and underwent the above-mentioned operation without complication. During the immediate postsurgical phase the patient had symptoms of nausea and abdominal distention resulting in treatment for a prolonged postsurgical ileus requiring nasogastric decompression, TPN, and eventual aggressive potassium replacement. He also developed paroxysmal SVT with a history of paroxysmal junctional tachycardia as a result of inability to take oral metoprolol during his treatment for ileus with nasogastric decompression. Cardiology treated tachycardia with a esmolol drip until oral metoprolol could be initiated. Following reinitiation of oral metoprolol cardiac status returned to baseline. Early in the postsurgical phase the patient began having frequent diarrheal-type bowel movements, treatment for C. difficile colitis was initiated and continued at discharge. Pathology: None Disposition: The patient was discharged to home on his 12th postsurgical day at which time he was tolerating an oral diet with no nausea or vomiting, he had no pain, he was taking oral vancomycin for C. difficile colitis, ambulating without assistance, potassium was 3.1, and his wounds appeared to be healing. Follow-up Plan: He will follow-up in the office with Dr. Parveen Johnson in 3 days with a basic metabolic panel to reassess serum potassium needs. ([Iron]) 25 MG PO BID (Reported) Amitriptyline (Amitriptyline) 25 Mg Tab 25 MG PO HS (Reported) Eszopiclone (Lunesta) 3 Mg Tablet 3 MG PO HS PRN PRN sleep (Reported) Furosemide (Furosemide) 20 Mg Tab 20 MG PO DAILY (Reported) Lisinopril (Lisinopril) 10 Mg Tablet 5 MG PO DAILY (Reported) Metoprolol Succinate ER (Metoprolol Succinate ER) 25 Mg Tab.er.24h 25 MG PO BID (Reported) Potassium Chloride (Potassium Chloride) 20 Meq Tab.er.prt 20 MEQ PO BID TAKE WITH FOOD Prazosin (Prazosin) 5 Mg Capsule 5 MG PO HS (Reported) Propranolol HCl (Propranolol HCl) 40 Mg Tablet 40 MG PO DAILY PRN PRN tachycardia (Reported) Vancomycin (Vancomycin) 125 Mg Capsule 125 MG PO Q6 copies to: Alessandra Greenwood MD; Cornelio Callejas MD; Hudson Casarez MD, Fred H PA-C Oct 04, 2016 14:38
== END 2016-10-02 15:12 | disposition home or self-care (01) | DRG 354 ==
LOC: SAS 05:39 → UNDOFXSDCACCOM 11:27 → UNDOFXSDCRRACCOM 11:27 → OBSVTOIN 11:27 → OSC 11:27 → SAS 11:27 → INTOOBSV 11:27 → PCC 09-27 13:22 → MPC 10-01 06:25
PROVIDERS: ADMIT Surgery; ATTEND Surgery
PROC: 0WUF4JZ Supplement Abdominal Wall with Synthetic Substitute, Percutaneous Endoscopic Approach (ICD-10-PCS; principal; 2016-09-20 07:30)
DX: K43.0 Incisional hernia with obstruction, without gangrene (principal); K56.7 Ileus, unspecified; I47.1 Supraventricular tachycardia; A04.7 Enterocolitis due to Clostridium difficile; E87.6 Hypokalemia; N40.0 Benign prostatic hyperplasia without lower urinary tract symptoms; J44.9 Chronic obstructive pulmonary disease, unspecified; I10 Essential (primary) hypertension; M50.30 Other cervical disc degeneration, unspecified cervical region